=== PATIENT | female | born 1955 | race African-American/Black ===

== ENCOUNTER 2024-09-26 16:12 | Emergency (ER) | payer MEDICARE, MEDICAID ==
[~2024-09-26] VITALS: Ht 160 cm; Wt 78.7 kg
[~2024-09-26 16:12] MED LIST: ALBUAER3 IN; CARV-216 OR; CARV25TA55; CARV25TA55 OR; DOCU150L3 PO; ESCI1TAB37 PO; GABA-1250 OR; GABA-1250 PO; HYDR-3547 OR; HYDR25TA4 PO; INSU100I4 SC; INSUINJ32 SC; LEVEMIR; LIS20T PO; LISI40TA16 OR; LORA-1105; LORA-1121 PO; LORA10TA6 PO; METO5TAB2 PO; PRED-188 PO; RANI75TA65 OR; RANI75TA65 PO; ROSU10TA16 OR; ROSU10TA16 PO; TRAZ-228 OR; TRAZ-228 PO; TRIA75TA11 OR; ZOLP10TA6 OR; ZOLP10TA6 PO
--- NOTE | 2024-09-26 16:44 | ED.PDOC ---
Sarmad. trauma (HPI) HPI Comments 69 year old female presents to the ED with chief complaint of headache and neck pain. Patient reports that she has been experiencing a tightness-like headache with associated right sided neck pain for the past 5 days. Patient relays that she had fallen out of her 5 days ago, hitting her head and is concerned she con tinues to have a headache. Patient denies any LOC, dizziness, back pain, chest pain, numbness, or weakness. Chief Complaint: Headache Time Seen by MD: 16:40 Primary Care Provider: andres Reviewed notes: Nurses Notes, Medications, Allergies Allergies: Coded Allergies: NO KNOWN ALLERGIES (Unverified , 04/07/14) Home Meds Reported Medications Albuterol Sulfate (VENTOLIN MDI) 90 Mcg Ih, 90 MCG IN 04/07/14 Escitalopram Oxalate (ESCITALOPRAM OXALATE) 20 Mg Tab, 1 TAB PO QPM, #30 TAB 5 Refills 04/07/14 Trazodone Hcl (Trazodone Hcl) 100 Mg Tab, 1 TAB PO QPM, #30 TAB 1 Refill 04/07/14 Hydrocodone-Acetaminophen (VICODIN) 1 Tab Tab, 1 TAB OR Q6HP PRN for MODERATE PAIN, TAB 04/07/14 Zolpidem Tartrate (Zolpidem Tartrate) 10 Mg Tab, 1 TAB PO QPM, #30 TAB 2 Refills 04/07/14 Metoclopramide Hcl (Metoclopramide Hcl) 5 Mg Tab, 5 MG PO TID, TAB 04/07/14 Hydrochlorothiazide (Hydrochlorothiazide) 25 Mg Tab, 1 TAB PO DAILY, #30 TAB 5 Refills 04/07/14 Loratadine (Loratadine) 10 Mg Tab, 10 MG PO DAILY, TAB 04/07/14 Rosuvastatin Calcium (Crestor) 10 Mg Tab, 1 TAB PO DAILY, #30 TAB 5 Refills 04/07/14 Gabapentin (Gabapentin) 300 Mg Cap, 1 CAP PO BID, #90 CAP 5 Refills 04/07/14 Prednisone (PREDNISONE) 20 Mg Tb, 1 TAB PO, #5 TAB 04/07/14 Carvedilol (COREG) 12.5 Mg Tab, 25 MG OR BID, TAB 04/07/14 Lorazepam (ATIVAN TABLET) 0.5 Mg Tb, 1 TAB PO BID PRN for ANXIETY, #60 TAB 04/07/14 Lorazepam (ATIVAN TABLET) 0.5 Mg Tb, 1 TAB PO TID, #90 TAB 04/07/14 Lisinopril (ZESTRIL TABLET) 20 Mg Tb, 40 MG PO 04/07/14 Docusate Sodium (Doc-Q-Lace) 150 Mg/15 Ml Liq, 100 MG PO, LIQ 04/07/14 Ranitidine Hcl (Ranitidine 75) 75 Mg Tab, 150 MG PO, TAB 04/07/14 Insulin Detemir (Levemir Flexpen) Flexpen Inj, 39 SC, INJ 04/07/14 Insulin Lispro (Human) (Humalog Kwikpen) 100 Mg/Ml Inj, 100 MG SC, INJ 04/07/14 Insulin Detemir (Levemir) Inj 03/23/11 Lorazepam (Lorazepam) 2 Mg Tab 03/23/11 Carvedilol (Carvedilol) 25 Mg Tab 03/23/11 Ranitidine Hcl (Ranitidine 75) 75 Mg Tab, 75 MG OR QAM, #2 12/18/10 Zolpidem Tartrate (Zolpidem Tartrate) 10 Mg Tab, 10 MG OR HS 12/18/10 Insulin Detemir (Levemir Flexpen) Flexpen Inj, 35 SC HS 12/18/10 Hydrochlorothiazide W/Triamter (Hctz/Triamterene) 1 Tab Tab, 1 TAB OR QAM 12/18/10 Lisinopril (Lisinopril) 40 Mg Tab, 40 MG OR BID 12/17/10 Trazodone Hcl (Trazodone Hcl) 100 Mg Tab, 100 MG OR HS 12/17/10 Rosuvastatin Calcium (Crestor) 10 Mg Tab, 10 MG OR HS 12/17/10 Carvedilol (Carvedilol) 25 Mg Tab, 25 MG OR BID 12/17/10 Gabapentin (Gabapentin) 300 Mg Cap, 300 MG OR BID 12/17/10 Information Source: Patient Mode of Arrival: Ambulatory Severity: Moderate Timing: Days Duration: Since onset Prehospital treatment: None Location: Head, Neck Location of neck pain: (R) Lateral Mechanism: Fall Past Medical History PAST MEDICAL HISTORY: Cancer, DM, HTN, UTI'S Surgical History: Denies all surgeries ELECTRICAL SUBCONTRACTOR History: No Pertinent ELECTRICAL SUBCONTRACTOR History Family History Family History: No family hx of DM, No family hx of HTN Social History Smoker: Non-Smoker Alcohol: Occasionally Drugs: Denies Drug Use Lives In: Home Constitutional: denies: chills, diaphoresis, fatigue, fever, malaise, sweats, weakness, others EENTM: denies: blurred vision, double vision, ear bleeding, ear discharge, ear drainage, ear pain, ear ringing, eye pain, eye redness, hearing loss, mouth p ain, mouth swelling, nasal discharge, nose bleeding, nose congestion, nose pain, photophobia, tearing, throat pain, throat swelling, voice changes, others Respiratory: denies: cough, hemoptysis, orthopnea, SOB at rest, shortness of br eath, SOB with excertion, stridor, wheezing, others Cardiovascular: denies: chest pain, dizzy spells, diaphoresis, Dyspnea on exertion, edema, irregular heart beat, left arm pain, lightheadedness, palpitations, PND, syncope, others Gastrointestinal: denies: abdomen distended, abdominal pain, blood streaked bowels, constipated, diarrhea, dysphagia, difficulty swallowing, hematemesis, melena, nausea, poor appetite, poor fluid intake, rectal bleeding, rectal pain, vomiting, others Genitourinary: denies: abnormal vagina bleeding, burning, dyspareunia, dysuria, flank pain, frequency, hematuria, incontinence, pain, , vagina discharge, urgency, others Neurological: reports: headache; denies: dizziness, fainting, left sided numbness, left sided weakness, numbness, paresthesia, pre-existing deficit, right sided numbness, right sided weakness, seizure, speech problems, tingling, tremors, weakness, others Musculoskeletal: reports: neck pain; denies: back pain, gout, joint pain, joint swelling, muscle pain, muscle stiffness, others Integumetry: denies: bruises, change in color, change in hair/nails, dryness, laceration, lesions, lumps, rash, wounds, others Allergic/Immunocompromised: denies: Difficulty Healing, Frequent Infections, Hives, Itching, others Hematologic/Lymphatic: denies: anemia, blood clots, easy bleeding, easy bruising, swollen glands, others Endocrine: denies: excessive hunger, excessive sweating, excessive thirst, excessive urination, flushing, intolerance to cold, intolerance to heat, unexplained weight gain, unexplained weight loss, others Psychiatric: denies: anxiety, bipolar disorder, depression, hopeless, panic d isorder, schizophrenia, sleepless, suicidal, others All Other Systems: Reviewed and Negative Physical Exam General Appearance: No Apparent Distress, Normal HEENT: Normal ENT Inspection, PERRL/EOMI, Other Neck: Full Range of Motion (Full ROM to the C-Spine), Non-Tender, Normal, Normal Inspection Respiratory: Chest Non-Tender, Lungs Clear, No Accessory Muscle Use, No Respiratory Distress, Normal Breath Sounds Cardiovascular: No Edema, No JVD, No Murmur, No Gallop, Normal Peripheral Pulses, Regular Rate/Rhythm Breast Exam: Deferred Gastrointestinal: No Organomegaly, Non Tender, No Pulsatile Mass, Normal Bowel Sounds, Soft Genitalia: Deferred Pelvic: Deferred Rectal: Deferred Extremities: No calf tenderness, Normal capillary refill, Normal inspection, Normal range of motion, Non-tender, No pedal edema Musculoskeletal : Location: Right Extremity Location: Other (Trapezius muscle) Apperance: Normal, Tenderness (Tenderness noted to right trapezius muscle) Neurologic: Alert, medical aide II-XII nml as Tested, No Motor Deficits, Normal Affect, Normal Mood, No Sensory Deficits Cerebellar Function: Normal Reflexes: Normal Skin: Dry, Normal Color, Warm Lymphatic: No Adenopathy Was a procedure done? Was a procedure done?: No Differential Diagnosis Multiple Trauma: Closed Head Injury, Fractures, Encephalopathy X-Ray, Labs, Meds, VS Vital Signs Date Time Temp Pulse Resp B/P (MAP) Pulse Ox O2 Delivery O2 Flow Rate FiO2 09/26/24 16:28 98.2 95 16 175/91 (119) 97 X-Ray, Labs, Meds, VS Comment Imaging: X-rays and CT scans were reviewed and interpreted by this provider, imaging shows no fractures and no pathological disease. Pending radiology review. Laboratory: Labs reviewed and interpreted by this provider. No significant abnormalities noted. Patient has prior medical visits reviewed. Med reconciliation performed Vital signs reviewed Time of 1ST Reevaluation: 17:40 Reevaluation 1ST: Unchanged Patient Education/Counseling: Diagnosis, Treatment, Need For Follow Up (Patient advised to follow-up in the emergency room in the next 24 to 48 hours if symptoms do not improve. Advised follow-up with PCP in the next 3 to 5 days. Patient verbalized understanding. ) Family Education/Counseling: No Family Present Departure 1 Departure Time of Disposition: 18:00 Impression: Primary Impression: Closed head injury Qualified Codes: S09.90XA - Unspecified injury of head, initial encounter Additional Impression: Tension headache Disposition: HOME / SELF CARE / HOMELESS Condition: Fair e-Prescriptions Cyclobenzaprine Hcl (Cyclobenzaprine Hcl) 5 Mg Tab 1 TAB PO QPM, #30 TAB Prov: KIRK CRISTINA 09/26/24 Discharged With: Self Critical Care Note Critical Care Time?: No Stability Stability form required: No Heart Score Heart Score: Heart Score Response (Comments) Value History N/A 0 EKG N/A 0 Age N/A 0 Risk Factors N/A 0 Troponin N/A 0 Total 0 I personally scribed for KIRK CRISTINA ([email or web address]) on 09/26/24 at 16:43. Electronically submitted by Chicho Dye ([email or web address]). KIRK CRISTINA Sep 26, 2024 16:43
--- NOTE | 2024-09-26 17:05 | DVH ---
EXAM: CT HEAD WITHOUT CONTRAST INDICATION: fall TECHNIQUE: CT of the head without intravenous contrast. Radiation Dose Information: CT Dose: CTDI volume is 53.79 mGy. Dose-length product is 862.4 mGy*cm The dose indicators for CT are the volume Computed Tomography (CT) Dose Index (CTDIvol) and the Dose Length Product (DLP), and are measured in units of mGy and mGy-cm, respectively. These indicators are not patient dose, but values generated from the CT scanner acquisition factors. The report includes radiation exposure data for exposures received during this examination. COMPARISON: None FINDINGS: There is no evidence of acute intracranial hemorrhage, extra-axial collection, mass effect, midline s hift, herniation or hydrocephalus. The ventricles, sulci and cisterns are age appropriate. The de guzman-white differentiation is intact. Patchy periventricular and subcortical white matter hypoattenuation is nonspecific but may be related to small vessel ischemic disease. Mucosal thickening of the sphenoid sinus on the left and mastoid air cells are clear. The surrounding soft tissues and osseous structures are unremarkable. IMPRESSION: 1. No acute intracranial hemorrhage 2. No CT findings of territorial ischemia. 3. No CT findings of displaced skull fracture.
[2024-09-26] MEDS ORDERED: CYCL-837 PO (18:03)
[2024-09-26 22:17] VITALS: BP 167/84; PULSE 72; RESP 18; TEMP 98.3; O2SAT 97
== END 2024-09-26 22:19 | disposition home or self-care (01) ==
LOC: ER 16:15
DX: S09.90XA Unspecified injury of head, initial encounter (principal); G44.209 Tension-type headache, unspecified, not intractable; I10 Essential (primary) hypertension; E11.9 Type 2 diabetes mellitus without complications; Z79.899 Other long term (current) drug therapy; Z79.4 Long term (current) use of insulin; W18.39XA Other fall on same level, initial encounter; Y93.89 Activity, other specified; Y92.89 Other specified places as the place of occurrence of the external cause; Y99.8 Other external cause status
CPT/HCPCS: 70450

== ENCOUNTER 2025-04-12 16:18 | Inpatient (IN) | payer OTHER, MEDICAID ==
[~2025-04-12] VITALS: Ht 160 cm; Wt 76.5 kg
[~2025-04-12 16:18] MED LIST changes: +CYCL-837 PO
[2025-04-12 17:25] LABS: Hematocrit 38.7 % (36.0-46.0); Hemoglobin 13.0 g/dL (12.2-16.2); Mean Corpuscular Hemoglobin 28.5 pg (28.0-32.0); Mean Corpuscular Volume 85.1 fL (80.0-100.0); Nucleated Red Blood Cells % 0.0 %
[2025-04-12 17:38] LABS: Sodium 144 mmol/L (136-145)
[2025-04-12 17:39] LABS: Anion Gap 5 (5-15); Calcium 9.6 mg/dL (8.7-10.4); Carbon Dioxide 24 mmol/L (20-31)
[2025-04-12 17:44] LABS: BUN/Creatinine Ratio 9.4 (10.0-20.0); Blood Urea Nitrogen 17 mg/dL (9-23)
--- NOTE | 2025-04-12 17:51 | ED.PDOC ---
History of Present Illness HPI Comments This is a 69 year old female presenting to the ED with chief complaint abnormal labs. Patient reports that she had recent lab work performed and received a call from her PCP an hour ago. Patient relays that she was told her Potassium was at 6.8 and advised her to be evaluated by the ED immediately. Patient states that she has been having some recent diarrhea and fatigue. Patient denies any N/V, chest pain, SOB, or abdominal pain. Chief Complaint: Abnormal LAB's Time Seen by MD: 17:00 Primary Care Provider: andres Reviewed Notes: Nurses Notes, Medications, Allergies Allergies: Coded Allergies: NO KNOWN ALLERGIES (Unverified , 04/07/14) Home Meds Active Scripts Cyclobenzaprine Hcl (Cyclobenzaprine Hcl) 5 Mg Tab, 1 TAB PO QPM, #30 TAB Prov:KIRK CRISTINA 09/26/24 Reported Medications Albuterol Sulfate (VENTOLIN MDI) 90 Mcg Ih, 90 MCG IN 04/07/14 Escitalopram Oxalate (ESCITALOPRAM OXALATE) 20 Mg Tab, 1 TAB PO QPM, #30 TAB 5 Refills 04/07/14 Trazodone Hcl (Trazodone Hcl) 100 Mg Tab, 1 TAB PO QPM, #30 TAB 1 Refill 04/07/14 Hydrocodone-Acetaminophen (VICODIN) 1 Tab Tab, 1 TAB OR Q6HP PRN for MODERATE PAIN, TAB 04/07/14 Zolpidem Tartrate (Zolpidem Tartrate) 10 Mg Tab, 1 TAB PO QPM, #30 TAB 2 Refills 04/07/14 Metoclopramide Hcl (Metoclopramide Hcl) 5 Mg Tab, 5 MG PO TID, TAB 04/07/14 Hydrochlorothiazide (Hydrochlorothiazide) 25 Mg Tab, 1 TAB PO DAILY, #30 TAB 5 Refills 04/07/14 Loratadine (Loratadine) 10 Mg Tab, 10 MG PO DAILY, TAB 04/07/14 Rosuvastatin Calcium (Crestor) 10 Mg Tab, 1 TAB PO DAILY, #30 TAB 5 Refills 04/07/14 Gabapentin (Gabapentin) 300 Mg Cap, 1 CAP PO BID, #90 CAP 5 Refills 04/07/14 Prednisone (PREDNISONE) 20 Mg Tb, 1 TAB PO, #5 TAB 04/07/14 Carvedilol (COREG) 12.5 Mg Tab, 25 MG OR BID, TAB 04/07/14 Lorazepam (ATIVAN TABLET) 0.5 Mg Tb, 1 TAB PO BID PRN for ANXIETY, #60 TAB 04/07/14 Lorazepam (ATIVAN TABLET) 0.5 Mg Tb, 1 TAB PO TID, #90 TAB 04/07/14 Lisinopril (ZESTRIL TABLET) 20 Mg Tb, 40 MG PO 04/07/14 Docusate Sodium (Doc-Q-Lace) 150 Mg/15 Ml Liq, 100 MG PO, LIQ 04/07/14 Ranitidine Hcl (Ranitidine 75) 75 Mg Tab, 150 MG PO, TAB 04/07/14 Insulin Detemir (Levemir Flexpen) Flexpen Inj, 39 SC, INJ 04/07/14 Insulin Lispro (Human) (Humalog Kwikpen) 100 Mg/Ml Inj, 100 MG SC, INJ 04/07/14 Insulin Detemir (Levemir) Inj 03/23/11 Lorazepam (Lorazepam) 2 Mg Tab 03/23/11 Carvedilol (Carvedilol) 25 Mg Tab 03/23/11 Ranitidine Hcl (Ranitidine 75) 75 Mg Tab, 75 MG OR QAM, #2 12/18/10 Zolpidem Tartrate (Zolpidem Tartrate) 10 Mg Tab, 10 MG OR HS 12/18/10 Insulin Detemir (Levemir Flexpen) Flexpen Inj, 35 SC HS 12/18/10 Hydrochlorothiazide W/Triamter (Hctz/Triamterene) 1 Tab Tab, 1 TAB OR QAM 12/18/10 Lisinopril (Lisinopril) 40 Mg Tab, 40 MG OR BID 12/17/10 Trazodone Hcl (Trazodone Hcl) 100 Mg Tab, 100 MG OR HS 12/17/10 Rosuvastatin Calcium (Crestor) 10 Mg Tab, 10 MG OR HS 12/17/10 Carvedilol (Carvedilol) 25 Mg Tab, 25 MG OR BID 12/17/10 Gabapentin (Gabapentin) 300 Mg Cap, 300 MG OR BID 12/17/10 Information Source: Patient Mode of Arrival: Ambulatory Severity: Moderate Timing: Hours Duration: Since onset Prehospital treatment: None Past Medical History PAST MEDICAL HISTORY: Cancer, DM, HTN, UTI'S Surgical History: Denies all surgeries FITTER HELPER History: No Pertinent FITTER HELPER History Family History Family History: No family hx of DM, No family hx of HTN Social History Smoker: Non-Smoker Alcohol: Occasionally Drugs: Denies Drug Use Lives In: Home Constitutional: reports: fatigue; denies: chills, diaphoresis, fever, malaise, sweats, weakness, others EENTM: denies: blurred vision, double vision, ear bleeding, ear discharge, ear drainage, ear pain, ear ringing, eye pain, eye redness, hearing loss, mouth pain, mouth swelling, nasal discharge, nose bleeding, nose congestion, nose pain, photophobia, tearing, throat pain, throat swelling, voice changes, others Respiratory: denies: cough, hemoptysis, orthopnea, SOB at rest, shortness of breath, SOB with excertion, stridor, wheezing, others Cardiovascular: denies: chest pain, dizzy spells, diaphoresis, Dyspnea on exertion, edema, irregular heart beat, left arm pain, lightheadedness, palpitations, PND, syncope, others Gastrointestinal: reports: diarrhea; denies: abdomen distended, abdominal pain, blood streaked bowels, constipated, dysphagia, difficulty swallowing, hematemesis, melena, nausea, poor appetite, poor fluid intake, rectal bleeding, rectal pain, vomiting, others Genitourinary: denies: abnormal vagina bleeding, burning, dyspareunia, dysuria, flank pain, frequency, hematuria, incontinence, pain, , vagina discharge, urgency, others Neurological: denies: dizziness, fainting, headache, left sided numbness, left sided weakness, numbness, paresthesia, pre-existing deficit, right sided numbness, right sided weakness, seizure, speech problems, tingling, tremors, weakness, others Musculoskeletal: denies: back pain, gout, joint pain, joint swelling, muscle pain, muscle stiffness, neck pain, others Integumetry: denies: bruises, change in color, change in hair/nails, dryness, laceration, lesions, lumps, rash, wounds, others Allergic/Immunocompromised: denies: Difficulty Healing, Frequent Infections, Hives, Itching, others Hematologic/Lymphatic: denies: anemia, blood clots, easy bleeding, easy bruising, swollen glands, others Endocrine: denies: excessive hunger, excessive sweating, excessive thirst, excessive urination, flushing, intolerance to cold, intolerance to heat, unexplained weight gain, unexplained weight loss, others Psychiatric: denies: anxiety, bipolar disorder, depression, hopeless, panic disorder, schizophrenia, sleepless, suicidal, others All Other Systems: Reviewed and Negative Physical Exam General Appearance: No Apparent Distress, Normal HEENT: Normal ENT Inspection, Pharynx Normal, TMs Normal Neck: Full Range of Motion, Non-Tender, Normal, Normal Inspection Respiratory: Chest Non-Tender, Lungs Clear, No Accessory Muscle Use, No Resp iratory Distress, Normal Breath Sounds Cardiovascular: No Edema, No JVD, No Murmur, No Gallop, Normal Peripheral Pulses, Regular Rate/Rhythm Breast Exam: Deferred Gastrointestinal: No Organomegaly, Non Tender, No Pulsatile Mass, Normal Bowel Sounds, Soft Genitalia: Deferred Pelvic: Deferred Rectal: Deferred Extremities: No calf tenderness, Normal capillary refill, Normal inspection, Normal range of motion, Non-tender, No pedal edema Musculoskeletal : Apperance: Normal Neurologic: Alert, rug cutter helper II-XII nml as Tested, No Motor Deficits, Normal Affect, Normal Mood, No Sensory Deficits Cerebellar Function: Normal Reflexes: Normal Skin: Dry, Normal Color, Warm Lymphatic: No Adenopathy Was a procedure done? Was a procedure done?: No Differential Dx Considerations may include: Hyperkalemia X-Ray, Labs, Meds, VS Vital Signs Date Time Temp Pulse Resp B/P (MAP) Pulse Ox O2 Delivery O2 Flow Rate FiO2 04/12/25 16:23 98.1 79 18 161/76 98 98.1 Lab Test 04/12/25 18:22 04/12/25 17:22 04/12/25 17:13 Range/Units Troponin I High Sensitivity 94 *H 91 *H </=34 ng/L Urine Color Yellow Yellow Urine Clarity Turbid H Clear Urine pH 6.0 5.0-9.0 Urine Specific [place] 1.017 1.001-1.035 Urine Protein 2+ H Negative Urine Ketones Negative Negative Urine Blood Negative Negative /uL Urine Nitrite Negative Negative Urine Bilirubin Negative Negative Urine Urobilinogen Normal Negative mg/dL Urine Leukocyte Esterase Negative Negative /uL Urine RBC 1 0 - 4 /hpf Urine Microscopic WBC 2 0-5 /HPF Urine Squamous Epithelial Cells Few <5 /hpf Urine Bacteria Mod H None Seen /hpf Urine Hyaline Casts Few 0 - 2 /lpf Urine Mucus Few None Seen Urine Glucose Normal Normal mg/dL White Blood Count 5.6 4.4-10.8 10^3/uL Red Blood Count 4.55 4.0-5.20 10^6/uL Hemoglobin 13.0 12.2-16.2 g/dL Hematocrit 38.7 36.0-46.0 % Mean Corpuscular Volume 85.1 80.0-100.0 fL Mean Corpuscular Hemoglobin 28.5 28.0-32.0 pg Mean Corpuscular Hemoglobin Concent 33.5 32.0-36.0 g/dL Red Cell Distribution Width 14.0 11.8-14.3 % Platelet Count 188 140-450 10^3/uL Mean Platelet Volume 8.7 6.9-10.8 fL Neutrophils (%) (Auto) 65.0 37.0-80.0 % Lymphocytes (%) (Auto) 22.6 10.0-50.0 % Monocytes (%) (Auto) 8.5 0.0-12.0 % Eosinophils (%) (Auto) 2.6 0.0-7.0 % Basophils (%) (Auto) 1.3 0.0-2.0 % Neutrophils # (Auto) 3.6 1.6-8.6 10 ^3/uL Lymphocytes # (Auto) 1.3 0.4-5.4 10 ^3/uL Monocytes # (Auto) 0.5 0-1.3 10 ^3/uL Eosinophils # (Auto) 0.1 0-0.8 10 ^3/uL Basophils # (Auto) 0.1 0-0.2 10 ^3/uL Nucleated Red Blood Cells 0.0 % Sodium Level 144 136-145 mmol/L Potassium Level 5.1 3.5-5.1 mmol/L Chloride Level 115 H 98-107 mmol/L Carbon Dioxide Level 24 20-31 mmol/L Anion Gap 5 5-15 Blood Urea Nitrogen 17 9-23 mg/dL Creatinine 1.81 H 0.550-1.02 mg/dL Glomerular Filtration Rate Calc 30 >90 mL/min BUN/Creatinine Ratio 9.4 L 10.0-20.0 Serum Glucose 134 H 74-106 mg/dL Calcium Level 9.6 8.7-10.4 mg/dL Time of 1ST Reevaluation: 18:00 Reevaluation 1ST: Unchanged Patient Education/Counseling: Diagnosis, Treatment Family Education/Counseling: No Family Present SEPSIS Sepsis Screen Date sepsis recognized/suspect: Apr 12, 2025 Time Sepsis recognized/suspect: 1625 Recent Procedure: No On Antibiotic Therapy: No Respiratory Rate >20: No Heart Rate >90: No Temp<36 C (96.8 F) or >38.3 C: No SBP <90 or MAP <65 mmHG: No New Acute Mental Status Change: No Is the patient on CPAP, BIPAP,: No Physician Orders Electrocardigram (04/12/25 16:51) Troponin-I Hs (04/12/25 19:51) Electrocardigram (04/12/25 17:51) Electrocardigram (04/12/25 19:51) Vital Signs Date Time Temp Pulse Resp B/P (MAP) Pulse Ox O2 Delivery O2 Flow Rate FiO2 04/12/25 16:23 98.1 79 18 161/76 98 98.1 Laboratory Tests Test 04/12/25 17:13 White Blood Count 5.6 10^3/uL (4.4-10.8) Departure 1 Departure Time of Disposition: 19:06 (Patient's potassium level was only mildly elevated however patient has prominent is elevated. EKGs nonischemic we will admit patient for further workup and expert consultation) Impression: Primary Impression: Generalized weakness Additional Impression: Elevated troponin Disposition: ADMITTED INPATIENT Admit to: Med Surg Condition: Guarded Critical Care Note Critical Care Time?: No Stability Stability form required: No Heart Score Heart Score: Heart Score Response (Comments) Value History N/A 0 EKG N/A 0 Age N/A 0 Risk Factors N/A 0 Troponin N/A 0 Total 0 I personally scribed for FANNIE QUINTANA MD ([email or web address]) on 04/12/25 at 17:51. Electronically submitted by Chicho Dye ([email or web address]). FANNIE QUINTANA MD Apr 12, 2025 17:51
[2025-04-12 18:37] LABS: Chloride 115 mmol/L (98-107); Glucose 134 mg/dL (74-106); Potassium 5.1 mmol/L (3.5-5.1)
[2025-04-12 18:40] LABS: Urine Protein, UAD 2+ (Negative)
--- NOTE | 2025-04-12 23:26 | DVHHP2 ---
History of Present Illness Reason for Visit: Elevated troponin History of Present Illness The patient is a 69-year-old female with past medical history of cancer site unknown, diabetes mellitus, UTIs, and hypertension who presented to [facility] ED for evaluation of abnormal labs. Patient reports that she had recent lab work performed and received a call from her PCP regarding her Potassium result was at 6.8, instructing her to be evaluated by the ED immediately. Patient states that she has been having some recent diarrhea and fatigue. Patient was seen and evaluated in the ED, laboratory data shows WBC 5.6, platelets 188, sodium 144, potassium 5.1, BUN 17, creatinine 1.81, glucose 134, calcium 9.6, troponin 94, blood pressure 161/76, pulse 79, temperature 98.1 F, O2 saturation 98% on room air. Please see medication orders section in the computer. On my assessment, patient denied chest pain, no headache, no dizziness, no diaphoresis, no shortness of breath, no diarrhea at this moment, no nausea, no vomiting, no fever, no chills. Patient was admitted for further evaluation and medical management. Past Medical History Cancer, DM, HTN, UTI'S Past Surgical History Denies all surgeries Family History Reviewed, noncontributory to the management of this case. Past Social History The patient lives at home, denies smoking, alcohol or illicit drugs abuse. Review of Systems Constitutional: Yes: Other (Fatigue); No: Fever, Chills, Sweats, Weakness, Malaise Eyes: No: Pain, Vision change, Conjunctivae inflammation, Eyelid inflammation, Other, Redness ENT: No: Ear pain, Ear discharge, Nose pain, Nose discharge, Nose congestion, Mouth pain, Mouth swelling, Throat pain, Throat swelling, Other Respiratory: No: Cough, Dry, Shortness of breath, SOB with excertion, Wheezing, Hemoptysis, Pleuritic Pain, Sputum, Wheezing, Other Cardiovascular: No: Chest Pain, Palpitations, Orthopnea, Paroxysmal Noc. Dyspnea, Edema, Lt Headedness, Other Gastrointestinal: Diarrhea; No: Nausea, Vomiting, Abdominal Pain, Constipation, Melena, Hematochezia, Other Genitourinary: No Dysuria, No Frequency, No Incontinence, No Hematuria, No Retention, No Other Musculoskeletal: No: other, neck pain, shoulder pain, arm pain, back pain, hand pain, leg pain, foot pain Skin: No: Rash, Lesions, Jaundice, Bruising, Other Neurological: No: Weakness, Numbness, Incoordination, Change in speech, Confusion, Seizures, Other Allergies: Coded Allergies: NO KNOWN ALLERGIES (Unverified , 04/07/14) Exam Vital Signs Vital Signs Date Time Temp Pulse Resp B/P (MAP) Pulse Ox O2 Delivery O2 Flow Rate FiO2 04/12/25 16:23 98.1 79 18 161/76 98 98.1 General Appearance: Alert, Oriented X3, Cooperative, No acute distress HEENT: Atraumatic, PERRLA, EOMI, Mucous membr. moist/pink Respiratory: Normal air movement Cardiovascular: Regular rate, Normal S1, Normal S2, No murmurs Abdominal: Normal bowel sounds, Soft, No tenderness, No hepatospenomegaly, No masses Extremities: No clubbing, No cyanosis, No edema, Normal pulses, No tenderness/swelling Skin: No rashes, No significant lesion Neuro: Normal speech, Normal tone, Sensation intact, Cranial nerves 3-12 NL, Reflexes 2+, Other (Generalized weakness) Psych/Mental Status: Mental status NL, Mood NL Labs/Xrays Labs Test 04/12/25 18:22 04/12/25 17:22 04/12/25 17:13 Range/Units Troponin I High Sensitivity 94 *H </=34 ng/L Urine Color Yellow Yellow Urine Clarity Turbid H Clear Urine pH 6.0 5.0-9.0 Urine Specific [place] 1.017 1.001-1.035 Urine Protein 2+ H Negative Urine Ketones Negative Negative Urine Blood Negative Negative /uL Urine Nitrite Negative Negative Urine Bilirubin Negative Negative Urine Urobilinogen Normal Negative mg/dL Urine Leukocyte Esterase Negative Negative /uL Urine RBC 1 0 - 4 /hpf Urine Microscopic WBC 2 0-5 /HPF Urine Squamous Epithelial Cells Few <5 /hpf Urine Bacteria Mod H None Seen /hpf Urine Hyaline Casts Few 0 - 2 /lpf Urine Mucus Few None Seen Urine Glucose Normal Normal mg/dL White Blood Count 5.6 4.4-10.8 10^3/uL Red Blood Count 4.55 4.0-5.20 10^6/uL Hemoglobin 13.0 12.2-16.2 g/dL Hematocrit 38.7 36.0-46.0 % Mean Corpuscular Volume 85.1 80.0-100.0 fL Mean Corpuscular Hemoglobin 28.5 28.0-32.0 pg Mean Corpuscular Hemoglobin Concent 33.5 32.0-36.0 g/dL Red Cell Distribution Width 14.0 11.8-14.3 % Platelet Count 188 140-450 10^3/uL Mean Platelet Volume 8.7 6.9-10.8 fL Neutrophils (%) (Auto) 65.0 37.0-80.0 % Lymphocytes (%) (Auto) 22.6 10.0-50.0 % Monocytes (%) (Auto) 8.5 0.0-12.0 % Eosinophils (%) (Auto) 2.6 0.0-7.0 % Basophils (%) (Auto) 1.3 0.0-2.0 % Neutrophils # (Auto) 3.6 1.6-8.6 10 ^3/uL Lymphocytes # (Auto) 1.3 0.4-5.4 10 ^3/uL Monocytes # (Auto) 0.5 0-1.3 10 ^3/uL Eosinophils # (Auto) 0.1 0-0.8 10 ^3/uL Basophils # (Auto) 0.1 0-0.2 10 ^3/uL Nucleated Red Blood Cells 0.0 % Sodium Level 144 136-145 mmol/L Potassium Level 5.1 3.5-5.1 mmol/L Chloride Level 115 H 98-107 mmol/L Carbon Dioxide Level 24 20-31 mmol/L Anion Gap 5 5-15 Blood Urea Nitrogen 17 9-23 mg/dL Creatinine 1.81 H 0.550-1.02 mg/dL Glomerular Filtration Rate Calc 30 >90 mL/min BUN/Creatinine Ratio 9.4 L 10.0-20.0 Serum Glucose 134 H 74-106 mg/dL Calcium Level 9.6 8.7-10.4 mg/dL SEPSIS Sepsis Screen Date sepsis recognized/suspect: Apr 12, 2025 Time Sepsis recognized/suspect: 1625 Recent Procedure: No On Antibiotic Therapy: No Respiratory Rate >20: No Heart Rate >90: No Temp<36 C (96.8 F) or >38.3 C: No SBP <90 or MAP <65 mmHG: No New Acute Mental Status Change: No Is the patient on CPAP, BIPAP,: No Physician Orders Electrocardigram (04/12/25 16:51) Troponin-I Hs (04/12/25 19:51) Electrocardigram (04/12/25 17:51) Electrocardigram (04/12/25 19:51) Consistent Carb(Ccho)Diabetes (04/13/25 Breakfast) * Cardiology Consult (04/12/25 23:18) *Dr. Rylie Colón -Da [place] (04/12/25 23:18) Aspirin Tablet (04/13/25 10:00) Aspirin Tablet (04/12/25 23:30) Atorvastatin (Lipitor) (04/13/25 22:00) Lorazepam 2mg/Ml Inj (Ativan Inj) (04/12/25 23:30) Carvedilol Tablet (Coreg Tablet) (04/13/25 10:00) Hydralazine Injection (Apresoline Inject (04/12/25 23:30) Amlodipine Tablet (Norvasc Tablet) (04/13/25 10:00) Glucose Blood (Accu-Chek Comfort Curve T (04/13/25 07:00) Bedtime Insulin Scale (04/13/25 22:00) Moderate Insulin Ss (04/13/25 07:00) Dextrose 50% Syringe (04/12/25 23:30) Admit (04/12/25 23:18) Allergies (04/12/25 23:18) Code Status (04/12/25 23:18) Sodium Chloride Lock (Saline Lock Ns) (04/13/25 06:00) Oxygen Per Hour (04/12/25 23:18) Hydrocodone-Acet 5/325mg Tab ([place] 32 (04/12/25 23:30) Ondansetron Hcl (Zofran) (04/12/25 23:30) Docusate Sodium Capsule (Colace Capsule) (04/12/25 23:30) Complete Blood Count (04/13/25 04:00) Comprehensive Metabolic Panel (04/13/25 04:00) Condition: Serious (04/12/25 23:18) Acetaminophen Tablet (Tylenol Tablet) (04/12/25 23:30) Bedrest With Bathroom Privileg (04/12/25 23:18) Sequential Compression Device (04/12/25 ) Nitroglycerin Sublingual (Ntrostat Subli (04/12/25 23:30) Morphine Sulfate Injection (04/12/25 23:30) Stat Ekg For Chest Pain (04/12/25 23:18) Notify Md Of Changes From Base (04/12/25 23:18) Travel Coordinator For 24 Hours (04/12/25 23:18) Emergency Dysrhythmia Protocol (04/12/25 23:18) Rhythm Strips Once Every Shift (04/12/25 23:18) Oxygen By Nasal Cannula (04/12/25 23:18) Vital Signs Date Time Temp Pulse Resp B/P (MAP) Pulse Ox O2 Delivery O2 Flow Rate FiO2 04/12/25 16:23 98.1 79 18 161/76 98 98.1 Laboratory Tests Test 04/12/25 17:13 White Blood Count 5.6 10^3/uL (4.4-10.8) Assessment/Plan Assessment/Plan Generalized weakness Hyperkalemia Acute renal injury Elevated troponin Diabetes mellitus with hyperglycemia Plan 1. Admit to telemetry unit 2. Breathing treatment 3. Pain control management 4. Management of fluids and electrolytes 5. Consultation for hospitalist 6. Diagnostic tests chest x-ray 7. DVT prophylaxis-on aspirin 8. Repeat labs CBC, CMP in a.m. 9. Continue with current medical management 10. Treatment plan discussed with patient and RN. Patient verbalized understanding. Plan discussed with: Patient, Other (RN) My Orders Orders - JT MCKINNEY DNP Procedure Category Date Status Time Consistent DIET 04/13/25 Transmitted Carb(Ccho)Diabetes Breakfast * Cardiology Consult CONS 04/12/25 Transmitted 23:18 *Dr. Rylie Colón -Da CONS 04/12/25 Transmitted [place] 23:18 Aspirin Tablet PHA 04/13/25 Transmitted 10:00 Aspirin Tablet PHA 04/12/25 Transmitted 23:30 Atorvastatin (Lipitor) PHA 04/13/25 Transmitted 22:00 Lorazepam 2mg/Ml Inj PHA 04/12/25 Verified (Ativan Inj) 23:30 Carvedilol Tablet PHA 04/13/25 Verified (Coreg Tablet) 10:00 Hydralazine Injection PHA 04/12/25 Verified (Apresoline Inject 23:30 Amlodipine Tablet PHA 04/13/25 Verified (Norvasc Tablet) 10:00 Glucose Blood PHA 04/13/25 Verified (Accu-Chek Comfort 07:00 Bedtime Insulin Scale PHA 04/13/25 Verified 22:00 Moderate Insulin Ss [facility] 04/13/25 Verified 07:00 Dextrose 50% Syringe [facility] 04/12/25 Verified 23:30 Admit ADMIT 04/12/25 Verified 23:[address] [facility] 04/12/25 Verified 23:18 Code Status CODE 04/12/25 Verified 23:18 Sodium Chloride Lock [facility] 04/13/25 Verified (Saline Lock Ns) 06:00 Oxygen Per Hour RT 04/12/25 Verified 23:18 Hydrocodone-Acet [facility] 04/12/25 Verified 5/325mg Tab ([place] 23:30 Ondansetron Hcl [facility] 04/12/25 Verified (Zofran) 23:30 Docusate Sodium [facility] 04/12/25 Verified Capsule (Colace 23:30 Complete Blood Count LAB 04/13/25 Verified 04:00 Comprehensive LAB 04/13/25 Verified Metabolic Panel 04:00 Condition: Serious [facility] 04/12/25 Verified 23:18 Acetaminophen Tablet [facility] 04/12/25 Verified (Tylenol Tablet) 23:30 Bedrest With Bathroom [facility] 04/12/25 Verified Privileg 23:[address] [facility] 04/12/25 Verified Compression Device Nitroglycerin [facility] 04/12/25 Verified Sublingual (Ntrostat 23:30 Morphine Sulfate [facility] 04/12/25 Verified Injection 23:30 Stat Ekg For Chest [facility] 04/12/25 Verified Pain 23:18 Notify Md Of Changes [facility] 04/12/25 Verified From Base 23:18 Travel Coordinator For [facility] 04/12/25 Verified 24 Hours 23:18 Emergency Dysrhythmia [facility] 04/12/25 Verified Protocol 23:18 Rhythm Strips Once [facility] 04/12/25 Verified Every Shift 23:18 Oxygen By Nasal 04/12/25 Verified Cannula 23:18 Problem List: (1) Generalized weakness (2) Hyperkalemia (3) Acute renal injury (4) Elevated troponin (5) Diabetes mellitus with hyperglycemia Date of Service: Apr 12, 2025 Billing Provider: JT MCKINNEY DNP Common Visit Codes: [id number] INP/OBS CARE (HIGH) JT MCKINNEY DNP Apr 12, 2025 23:25
[2025-04-12] MEDS ORDERED: MORPHINE SULFATE INJ 2 MG/ml SYRG IV PRN (23:30)
[2025-04-12] MEDS ORDERED: DEXTROSE (50%) 50ML SYRG IV PRN (23:30)
[2025-04-12] MEDS ORDERED: NITROGLYCERIN 0.4 MG SL TAB SL PRN (23:30)
[2025-04-12] MEDS ORDERED: DOCUSATE SOD 100 MG CAP PO PRN (23:30)
[2025-04-12] MEDS ORDERED: ACETAMINOPHEN 325 MG TAB PO PRN (23:30)
[2025-04-12] MEDS ORDERED: LORazepam 2MG/ML-1ML VIAL IV PRN (23:30)
[2025-04-12] MEDS ORDERED: ONDANSETRON HCL 4 MG/2 ML VIAL IV PRN (23:30)
[2025-04-13] VITALS (9 sets, daily range): BP systolic 130–171; BP diastolic 63–85; PULSE 66–99; RESP 16–18; TEMP 98–98.7; O2SAT 97–99
[2025-04-13] MEDS: HYDROcodone-ACET 5/325MG TAB PO PRN (01:48)
[2025-04-13] MEDS ORDERED: QUET50TA PO (01:56)
[2025-04-13] MEDS: hydrALAZINE HCL 20 MG/ML VL IV PRN (04:30)
[2025-04-13] MEDS: SODIUM CHLOR 0.9% PF (SALINE LOCK) 10ML VIAL/SYR IV SCH (05:29)
[2025-04-13] MEDS: InsuLIN REG 1unit/0.01ml Soln (100units/ml) SC SCH (06:35)
[2025-04-13] MEDS: ACCU-CHEK COMFORT CURVE STRIP VI SCH (06:35)
[2025-04-13 07:38] LABS: Hematocrit 35.2 % (36.0-46.0); Hemoglobin 12.0 g/dL (12.2-16.2); Mean Corpuscular Hemoglobin 28.9 pg (28.0-32.0); Mean Corpuscular Volume 84.9 fL (80.0-100.0); Nucleated Red Blood Cells % 0.1 %
[2025-04-13 07:46] LABS: Alanine Aminotransferase 11 U/L (7-40); Albumin 4.3 g/dL (3.2-4.8); Alkaline Phosphatase 84 U/L (46-116); Anion Gap 9 (5-15); BUN/Creatinine Ratio 15.6 (10.0-20.0); Calcium 9.2 mg/dL (8.7-10.4); Carbon Dioxide 21 mmol/L (20-31); Potassium 4.2 mmol/L (3.5-5.1); Sodium 143 mmol/L (136-145); Total Protein 6.8 g/dL (5.7-8.2)
[2025-04-13 07:47] LABS: Bilirubin, Total 0.6 mg/dL (0.2-1.0)
[2025-04-13 07:56] LABS: Blood Urea Nitrogen 26 mg/dL (9-23); Chloride 113 mmol/L (98-107); Glucose 118 mg/dL (74-106)
[2025-04-13] MEDS: CARVEDILOL 12.5 MG TAB PO SCH (09:52)
--- NOTE | 2025-04-13 10:05 | DVHINCON2 ---
Date of service: Apr 13, 2025 Referring Physician Ga Deluna NP Reason for Consultation ELEVATED CREATININE History of Present Illness This is a 69-year-old female with history of type 2 diabetes, hypertension, hyperlipidemia and cardiomyopathy sent to the emergency room by her primary doctor because of hyperkalemia. Patient says that she was seen by a kidney doctor in the past but does not recall the name. Patient has been experiencing diarrhea for the past few days. Initial evaluation in the emergency room showed the potassium was 5.1. Noted to have an elevated creatinine of 1.8. Patient is not sure of her baseline labs. Patient says she is new to the area and has not established care with the match up worker. Patient is seen and examined at bedside. Denies any complaints. Wanting to go home. Past Medical History Cancer, DM, HTN, UTI'S Past Surgical History Denies all surgeries Family History Reviewed, noncontributory to the management of this case. Social History The patient lives at home, denies smoking, alcohol or illicit drugs abuse. Allergies: Coded Allergies: NO KNOWN ALLERGIES (Unverified , 04/07/14) Home Meds Active Scripts Cyclobenzaprine Hcl (Cyclobenzaprine Hcl) 5 Mg Tab, 1 TAB PO QPM, #30 TAB Prov:KIRK CRISTINA 09/26/24 Reported Medications Quetiapine Fumerate (Seroquel) 50 Mg Tab, 1 TAB PO QPM, #30 TAB 2 Refills 04/13/25 Albuterol Sulfate (VENTOLIN MDI) 90 Mcg Ih, 90 MCG IN 04/07/14 Escitalopram Oxalate (ESCITALOPRAM OXALATE) 20 Mg Tab, 1 TAB PO QPM, #30 TAB 5 Refills 04/07/14 Trazodone Hcl (Trazodone Hcl) 100 Mg Tab, 1 TAB PO QPM, #30 TAB 1 Refill 04/07/14 Hydrocodone-Acetaminophen (VICODIN) 1 Tab Tab, 1 TAB OR Q6HP PRN for MODERATE PAIN, TAB 04/07/14 Zolpidem Tartrate (Zolpidem Tartrate) 10 Mg Tab, 1 TAB PO QPM, #30 TAB 2 Refills 04/07/14 Metoclopramide Hcl (Metoclopramide Hcl) 5 Mg Tab, 5 MG PO TID, TAB 04/07/14 Hydrochlorothiazide (Hydrochlorothiazide) 25 Mg Tab, 1 TAB PO DAILY, #30 TAB 5 Refills 04/07/14 Loratadine (Loratadine) 10 Mg Tab, 10 MG PO DAILY, TAB 04/07/14 Rosuvastatin Calcium (Crestor) 10 Mg Tab, 1 TAB PO DAILY, #30 TAB 5 Refills 04/07/14 Gabapentin (Gabapentin) 300 Mg Cap, 1 CAP PO BID, #90 CAP 5 Refills 04/07/14 Prednisone (PREDNISONE) 20 Mg Tb, 1 TAB PO, #5 TAB 04/07/14 Carvedilol (COREG) 12.5 Mg Tab, 25 MG OR BID, TAB 04/07/14 Lorazepam (ATIVAN TABLET) 0.5 Mg Tb, 1 TAB PO BID PRN for ANXIETY, #60 TAB 04/07/14 Lorazepam (ATIVAN TABLET) 0.5 Mg Tb, 1 TAB PO TID, #90 TAB 04/07/14 Lisinopril (ZESTRIL TABLET) 20 Mg Tb, 40 MG PO 04/07/14 Docusate Sodium (Doc-Q-Lace) 150 Mg/15 Ml Liq, 100 MG PO, LIQ 04/07/14 Ranitidine Hcl (Ranitidine 75) 75 Mg Tab, 150 MG PO, TAB 04/07/14 Insulin Detemir (Levemir Flexpen) Flexpen Inj, 39 SC, INJ 04/07/14 Insulin Lispro (Human) (Humalog Kwikpen) 100 Mg/Ml Inj, 100 MG SC, INJ 04/07/14 Insulin Detemir (Levemir) Inj 03/23/11 Lorazepam (Lorazepam) 2 Mg Tab 03/23/11 Carvedilol (Carvedilol) 25 Mg Tab 03/23/11 Ranitidine Hcl (Ranitidine 75) 75 Mg Tab, 75 MG OR QAM, #2 12/18/10 Zolpidem Tartrate (Zolpidem Tartrate) 10 Mg Tab, 10 MG OR HS 12/18/10 Insulin Detemir (Levemir Flexpen) Flexpen Inj, 35 SC HS 12/18/10 Hydrochlorothiazide W/Triamter (Hctz/Triamterene) 1 Tab Tab, 1 TAB OR QAM 12/18/10 Lisinopril (Lisinopril) 40 Mg Tab, 40 MG OR BID 12/17/10 Trazodone Hcl (Trazodone Hcl) 100 Mg Tab, 100 MG OR HS 12/17/10 Rosuvastatin Calcium (Crestor) 10 Mg Tab, 10 MG OR HS 12/17/10 Carvedilol (Carvedilol) 25 Mg Tab, 25 MG OR BID 12/17/10 Gabapentin (Gabapentin) 300 Mg Cap, 300 MG OR BID 12/17/10 Current Medications Current Medications Medications (Trade) Dose Ordered Sig/Estee Route PRN Reason Start Time Stop Time Status Last Admin Aspirin 81 mg DAILY PO 04/13/25 10:00 04/13/25 09:52 Atorvastatin Calcium (Lipitor) 10 mg HS PO 04/13/25 22:00 Lorazepam (Ativan Inj) 1 mg Q8HP PRN IV ANXIETY 04/12/25 23:30 Carvedilol (Coreg Tablet) 12.5 mg Q12HR PO 04/13/25 10:00 04/13/25 09:52 Hydralazine HCl (Apresoline Injection) 10 mg Q6HP PRN IV SBP>150 04/12/25 23:30 04/13/25 04:30 Amlodipine Besylate (Norvasc Tablet) 5 mg DAILY PO 04/13/25 10:00 04/13/25 09:52 Diagnostic Test (Pha) (Accu-Chek Comfort Curve T) 1 strip ACHS 04/13/25 07:00 04/13/25 06:35 Insulin Human Regular (InsuLIN R) HS SC 04/13/25 22:00 Insulin Human Regular (InsuLIN R) AC SC 04/13/25 07:00 Dextrose 50 ml UD PRN IV Blood Sugar LESS THAN 60 04/12/25 23:30 Sodium Chloride (Saline Lock Ns) 10 ml Q8HR IV 04/13/25 06:00 04/13/25 05:29 Acetaminophen/ Hydrocodone Bitart ([place] 5/325MG Tab) 1 tab Q4HP PRN PO MODERATE PAIN (4-6 PAIN SCALE) 04/12/25 23:30 04/13/25 01:48 Ondansetron HCl (Zofran) 4 mg Q4HP PRN IV NAUSEA / VOMITING 04/12/25 23:30 Docusate Sodium (Colace Capsule) 100 mg BIDPRN PRN PO FOR CONSTIPATION 04/12/25 23:30 Acetaminophen (Tylenol Tablet) 650 mg Q6HP PRN PO PAIN SCALE 1-3 OR TEMP>100.4 04/12/25 23:30 Nitroglycerin (Ntrostat Sublingual) 0.4 mg Q5MINP PRN SL FOR CHEST PAIN 04/12/25 23:30 Morphine Sulfate 2 mg Q30M PRN IV FOR CHEST PAIN 04/12/25 23:30 Review of Systems Twelve point review of systems negative except as stated in the HPI Vital Signs Vital Signs Date Time Temp Pulse Resp B/P (MAP) Pulse Ox O2 Delivery O2 Flow Rate FiO2 04/13/25 09:52 130/72 04/13/25 09:52 75 04/13/25 08:19 Room Air* 0 21 04/13/25 08:00 98.3 16 97 98.3 Physical Exam General Appearance: Alert, Oriented X3, Cooperative, No acute distress HEENT: Atraumatic, PERRLA, EOMI, Mucous membr. moist/pink Respiratory: Normal air movement Cardiovascular: Regular rate, Normal S1, Normal S2, No murmurs Abdominal: Normal bowel sounds, Soft, No tenderness, No hepatospenomegaly, No masses Extremities: No clubbing, No cyanosis, No edema, Normal pulses, No tenderness/swelling Skin: No rashes, No significant lesion Neuro: Normal speech, Normal tone, Sensation intact, Cranial nerves 3-12 NL, Reflexes 2+, Other (Generalized weakness) Psych/Mental Status: Mental status NL, Mood NL Labs/Diagnostic Data Labs Test 04/13/25 06:33 04/13/25 05:54 04/12/25 23:30 04/12/25 17:22 Range/Units POC Glucose 130 H 70-106 mg/dl White Blood Count 5.9 4.4-10.8 10^3/uL Red Blood Count 4.15 4.0-5.20 10^6/uL Hemoglobin 12.0 L 12.2-16.2 g/dL Hematocrit 35.2 L 36.0-46.0 % Mean Corpuscular Volume 84.9 80.0-100.0 fL Mean Corpuscular Hemoglobin 28.9 28.0-32.0 pg Mean Corpuscular Hemoglobin Concent 34.0 32.0-36.0 g/dL Red Cell Distribution Width 14.3 11.8-14.3 % Platelet Count 164 140-450 10^3/uL Mean Platelet Volume 8.8 6.9-10.8 fL Neutrophils (%) (Auto) 54.5 37.0-80.0 % Lymphocytes (%) (Auto) 31.6 10.0-50.0 % Monocytes (%) (Auto) 10.7 0.0-12.0 % Eosinophils (%) (Auto) 2.4 0.0-7.0 % Basophils (%) (Auto) 0.8 0.0-2.0 % Neutrophils # (Auto) 3.2 1.6-8.6 10 ^3/uL Lymphocytes # (Auto) 1.9 0.4-5.4 10 ^3/uL Monocytes # (Auto) 0.6 0-1.3 10 ^3/uL Eosinophils # (Auto) 0.1 0-0.8 10 ^3/uL Basophils # (Auto) 0 0-0.2 10 ^3/uL Nucleated Red Blood Cells 0.1 % Sodium Level 143 136-145 mmol/L Potassium Level 4.2 3.5-5.1 mmol/L Chloride Level 113 H 98-107 mmol/L Carbon Dioxide Level 21 20-31 mmol/L Anion Gap 9 5-15 Blood Urea Nitrogen 26 H 9-23 mg/dL Creatinine 1.67 H 0.550-1.02 mg/dL Glomerular Filtration Rate Calc 33 >90 mL/min BUN/Creatinine Ratio 15.6 10.0-20.0 Serum Glucose 118 H 74-106 mg/dL Calcium Level 9.2 8.7-10.4 mg/dL Total Bilirubin 0.6 0.2-1.0 mg/dL Aspartate Amino Transferase (AST) 18 13-40 U/L Alanine Aminotransferase (ALT) 11 7-40 U/L Alkaline Phosphatase 84 46-116 U/L Total Protein 6.8 5.7-8.2 g/dL Albumin 4.3 3.2-4.8 g/dL Troponin I High Sensitivity 99 *H </=34 ng/L Urine Color Yellow Yellow Urine Clarity Turbid H Clear Urine pH 6.0 5.0-9.0 Urine Specific [place] 1.017 1.001-1.035 Urine Protein 2+ H Negative Urine Ketones Negative Negative Urine Blood Negative Negative /uL Urine Nitrite Negative Negative Urine Bilirubin Negative Negative Urine Urobilinogen Normal Negative mg/dL Urine Leukocyte Esterase Negative Negative /uL Urine RBC 1 0 - 4 /hpf Urine Microscopic WBC 2 0-5 /HPF Urine Squamous Epithelial Cells Few <5 /hpf Urine Bacteria Mod H None Seen /hpf Urine Hyaline Casts Few 0 - 2 /lpf Urine Mucus Few None Seen Urine Glucose Normal Normal mg/dL Assessment BOYD superimposed on Chronic kidney disease stage IIIB Elevated troponins History of cardiomyopathy Type 2 diabetes with nephropathy Proteinuria Hypertension Hyperlipidemia Plan/Recommendation Check renal ultrasound Check urine PCR Discontinue hydrochlorothiazide/triamterene on discharge. Patient can be on hydrochlorothiazide. Continue with ELIU inhibitors Cardiology evaluation and 2D echocardiogram as the patient gives history of cardiomyopathy Plan discussed with: Patient LEONA SALAZAR MD Apr 13, 2025 10:05
--- NOTE | 2025-04-13 11:08 | DVHINCON2 ---
Date Seen: Apr 13, 2025 Referring Physician ROSCOE Deluna Reason for Consultation Elevated troponin History of Present Illness This is a 69-year-old female patient who presents to the emergency room after being sent here by her primary care physician. The patient reports that she received a call from her primary care physician's office stating that her laboratory work came back with elevated potassium levels. She prompted the patient to come to the emergency room for further evaluation. Patient does mention generalized weakness for approximately one year. She denies any cardiac symptoms. Cardiology has been consulted at this time for elevated troponin level. Initial twelve lead electrocardiogram reveals normal sinus rhythm with first-degree conduction delay and right bundle branch block. Initial troponin level of 91ng/L with flat trend thereafter. Significant past medical history includes congestive heart failure, hypertension, dyslipidemia, type 2 diabetes mellitus, chronic kidney disease, and breast cancer status post radiation/chemotherapy and lumpectomy. 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 Past Medical History Past medical history reviewed. No other significant than mentioned above. Past Surgical History Right lumpectomy in 2013 x3 Cholecystectomy Family History Family history reviewed. Social History Patient has a one pack-year history, quit smoking approximately two years ago Patient admits to previous cocaine use, last time over one year ago Patient admits to occasional marijuana use Patient denies alcohol use Allergies: Coded Allergies: NO KNOWN ALLERGIES (Unverified , 04/07/14) Home Meds Active Scripts Cyclobenzaprine Hcl (Cyclobenzaprine Hcl) 5 Mg Tab, 1 TAB PO QPM, #30 TAB Prov:KIRK CRISTINA 09/26/24 Reported Medications Quetiapine Fumerate (Seroquel) 50 Mg Tab, 1 TAB PO QPM, #30 TAB 2 Refills 04/13/25 Albuterol Sulfate (VENTOLIN MDI) 90 Mcg Ih, 90 MCG IN 04/07/14 Escitalopram Oxalate (ESCITALOPRAM OXALATE) 20 Mg Tab, 1 TAB PO QPM, #30 TAB 5 Refills 04/07/14 Trazodone Hcl (Trazodone Hcl) 100 Mg Tab, 1 TAB PO QPM, #30 TAB 1 Refill 04/07/14 Hydrocodone-Acetaminophen (VICODIN) 1 Tab Tab, 1 TAB OR Q6HP PRN for MODERATE PAIN, TAB 04/07/14 Zolpidem Tartrate (Zolpidem Tartrate) 10 Mg Tab, 1 TAB PO QPM, #30 TAB 2 Refills 04/07/14 Metoclopramide Hcl (Metoclopramide Hcl) 5 Mg Tab, 5 MG PO TID, TAB 04/07/14 Hydrochlorothiazide (Hydrochlorothiazide) 25 Mg Tab, 1 TAB PO DAILY, #30 TAB 5 Refills 04/07/14 Loratadine (Loratadine) 10 Mg Tab, 10 MG PO DAILY, TAB 04/07/14 Rosuvastatin Calcium (Crestor) 10 Mg Tab, 1 TAB PO DAILY, #30 TAB 5 Refills 04/07/14 Gabapentin (Gabapentin) 300 Mg Cap, 1 CAP PO BID, #90 CAP 5 Refills 04/07/14 Prednisone (PREDNISONE) 20 Mg Tb, 1 TAB PO, #5 TAB 04/07/14 Carvedilol (COREG) 12.5 Mg Tab, 25 MG OR BID, TAB 04/07/14 Lorazepam (ATIVAN TABLET) 0.5 Mg Tb, 1 TAB PO BID PRN for ANXIETY, #60 TAB 04/07/14 Lorazepam (ATIVAN TABLET) 0.5 Mg Tb, 1 TAB PO TID, #90 TAB 04/07/14 Lisinopril (ZESTRIL TABLET) 20 Mg Tb, 40 MG PO 04/07/14 Docusate Sodium (Doc-Q-Lace) 150 Mg/15 Ml Liq, 100 MG PO, LIQ 04/07/14 Ranitidine Hcl (Ranitidine 75) 75 Mg Tab, 150 MG PO, TAB 04/07/14 Insulin Detemir (Levemir Flexpen) Flexpen Inj, 39 SC, INJ 04/07/14 Insulin Lispro (Human) (Humalog Kwikpen) 100 Mg/Ml Inj, 100 MG SC, INJ 04/07/14 Insulin Detemir (Levemir) Inj 03/23/11 Lorazepam (Lorazepam) 2 Mg Tab 03/23/11 Carvedilol (Carvedilol) 25 Mg Tab 03/23/11 Ranitidine Hcl (Ranitidine 75) 75 Mg Tab, 75 MG OR QAM, #2 12/18/10 Zolpidem Tartrate (Zolpidem Tartrate) 10 Mg Tab, 10 MG OR HS 12/18/10 Insulin Detemir (Levemir Flexpen) Flexpen Inj, 35 SC HS 12/18/10 Hydrochlorothiazide W/Triamter (Hctz/Triamterene) 1 Tab Tab, 1 TAB OR QAM 12/18/10 Lisinopril (Lisinopril) 40 Mg Tab, 40 MG OR BID 12/17/10 Trazodone Hcl (Trazodone Hcl) 100 Mg Tab, 100 MG OR HS 12/17/10 Rosuvastatin Calcium (Crestor) 10 Mg Tab, 10 MG OR HS 12/17/10 Carvedilol (Carvedilol) 25 Mg Tab, 25 MG OR BID 12/17/10 Gabapentin (Gabapentin) 300 Mg Cap, 300 MG OR BID 12/17/10 Home Meds Home medications reviewed. Current Medications Current Medications Medications (Trade) Dose Ordered Sig/Estee Route PRN Reason Start Time Stop Time Status Last Admin Aspirin 81 mg DAILY PO 04/13/25 10:00 04/13/25 09:52 Atorvastatin Calcium (Lipitor) 10 mg HS PO 04/13/25 22:00 Lorazepam (Ativan Inj) 1 mg Q8HP PRN IV ANXIETY 04/12/25 23:30 Carvedilol (Coreg Tablet) 12.5 mg Q12HR PO 04/13/25 10:00 04/13/25 09:52 Hydralazine HCl (Apresoline Injection) 10 mg Q6HP PRN IV SBP>150 04/12/25 23:30 04/13/25 04:30 Amlodipine Besylate (Norvasc Tablet) 5 mg DAILY PO 04/13/25 10:00 04/13/25 09:52 Diagnostic Test (Pha) (Accu-Chek Comfort Curve T) 1 strip ACHS 04/13/25 07:00 04/13/25 06:35 Insulin Human Regular (InsuLIN R) HS SC 04/13/25 22:00 Insulin Human Regular (InsuLIN R) AC SC 04/13/25 07:00 Dextrose 50 ml UD PRN IV Blood Sugar LESS THAN 60 04/12/25 23:30 Sodium Chloride (Saline Lock Ns) 10 ml Q8HR IV 04/13/25 06:00 04/13/25 05:29 Acetaminophen/ Hydrocodone Bitart ([place] 5/325MG Tab) 1 tab Q4HP PRN PO MODERATE PAIN (4-6 PAIN SCALE) 04/12/25 23:30 04/13/25 01:48 Ondansetron HCl (Zofran) 4 mg Q4HP PRN IV NAUSEA / VOMITING 04/12/25 23:30 Docusate Sodium (Colace Capsule) 100 mg BIDPRN PRN PO FOR CONSTIPATION 04/12/25 23:30 Acetaminophen (Tylenol Tablet) 650 mg Q6HP PRN PO PAIN SCALE 1-3 OR TEMP>100.4 04/12/25 23:30 Nitroglycerin (Ntrostat Sublingual) 0.4 mg Q5MINP PRN SL FOR CHEST PAIN 04/12/25 23:30 Morphine Sulfate 2 mg Q30M PRN IV FOR CHEST PAIN 04/12/25 23:30 Review of Systems Constitutional: Generalized weakness Ears, Nose, & Throat: No symptom reported Eyes: No symptom reported Neurological: No symptoms reported Pulmonary/Respiratory: No symptoms reported Cardiovascular: No symptom reported Gastrointestinal: No symptom reported Genitourinary: No symptom reported Musculoskeletal: No symptom reported Skin: No symptom reported Psychiatric: No symptom reported Endocrine: No symptom reported Hematologic/Lymphatic: No symptom reported Vital Signs Vital Signs Date Time Temp Pulse Resp B/P (MAP) Pulse Ox O2 Delivery O2 Flow Rate FiO2 04/13/25 09:52 130/72 04/13/25 09:52 75 04/13/25 08:19 Room Air* 0 21 04/13/25 08:00 98.3 16 97 98.3 Physical Exam General Appearance: Cooperative. Well-developed. Well-nourished. No acute distress. Pulmonary/Respiratory: Clear, bilateral breaths sounds. Cardiovascular/Chest: Regular rate and rhythm. Peripheral Pulses: 2+ Radial (R). 2+ Radial (L). 2+ Pedal (R). 2+ Pedal (L) Abdominal Exam: Normal bowel sounds. Ankle Exam: Negative ankle edema Lower extremities: Negative lower extremity edema Neuro/Mental Status: A/OX4, coherent. Thoughts/Psych: Normal thought pattern. Appropriate mood and affect. Good judgment and insight. Appearance: No acute distress. Skin Exam: Normal inspection. Normal color. Warm and dry. Labs/Diagnostic Data Labs Test 04/13/25 06:33 04/13/25 05:54 04/12/25 23:30 04/12/25 17:22 Range/Units POC Glucose 130 H 70-106 mg/dl White Blood Count 5.9 4.4-10.8 10^3/uL Red Blood Count 4.15 4.0-5.20 10^6/uL Hemoglobin 12.0 L 12.2-16.2 g/dL Hematocrit 35.2 L 36.0-46.0 % Mean Corpuscular Volume 84.9 80.0-100.0 fL Mean Corpuscular Hemoglobin 28.9 28.0-32.0 pg Mean Corpuscular Hemoglobin Concent 34.0 32.0-36.0 g/dL Red Cell Distribution Width 14.3 11.8-14.3 % Platelet Count 164 140-450 10^3/uL Mean Platelet Volume 8.8 6.9-10.8 fL Neutrophils (%) (Auto) 54.5 37.0-80.0 % Lymphocytes (%) (Auto) 31.6 10.0-50.0 % Monocytes (%) (Auto) 10.7 0.0-12.0 % Eosinophils (%) (Auto) 2.4 0.0-7.0 % Basophils (%) (Auto) 0.8 0.0-2.0 % Neutrophils # (Auto) 3.2 1.6-8.6 10 ^3/uL Lymphocytes # (Auto) 1.9 0.4-5.4 10 ^3/uL Monocytes # (Auto) 0.6 0-1.3 10 ^3/uL Eosinophils # (Auto) 0.1 0-0.8 10 ^3/uL Basophils # (Auto) 0 0-0.2 10 ^3/uL Nucleated Red Blood Cells 0.1 % Sodium Level 143 136-145 mmol/L Potassium Level 4.2 3.5-5.1 mmol/L Chloride Level 113 H 98-107 mmol/L Carbon Dioxide Level 21 20-31 mmol/L Anion Gap 9 5-15 Blood Urea Nitrogen 26 H 9-23 mg/dL Creatinine 1.67 H 0.550-1.02 mg/dL Glomerular Filtration Rate Calc 33 >90 mL/min BUN/Creatinine Ratio 15.6 10.0-20.0 Serum Glucose 118 H 74-106 mg/dL Calcium Level 9.2 8.7-10.4 mg/dL Total Bilirubin 0.6 0.2-1.0 mg/dL Aspartate Amino Transferase (AST) 18 13-40 U/L Alanine Aminotransferase (ALT) 11 7-40 U/L Alkaline Phosphatase 84 46-116 U/L Total Protein 6.8 5.7-8.2 g/dL Albumin 4.3 3.2-4.8 g/dL Troponin I High Sensitivity 99 *H </=34 ng/L Urine Color Yellow Yellow Urine Clarity Turbid H Clear Urine pH 6.0 5.0-9.0 Urine Specific [place] 1.017 1.001-1.035 Urine Protein 2+ H Negative Urine Ketones Negative Negative Urine Blood Negative Negative /uL Urine Nitrite Negative Negative Urine Bilirubin Negative Negative Urine Urobilinogen Normal Negative mg/dL Urine Leukocyte Esterase Negative Negative /uL Urine RBC 1 0 - 4 /hpf Urine Microscopic WBC 2 0-5 /HPF Urine Squamous Epithelial Cells Few <5 /hpf Urine Bacteria Mod H None Seen /hpf Urine Hyaline Casts Few 0 - 2 /lpf Urine Mucus Few None Seen Urine Glucose Normal Normal mg/dL Assessment NSTEMI, likely type 2 Rule out structural heart disease Hypertension Dyslipidemia Type 2 diabetes mellitus Chronic kidney disease Borderline hyperkalemia History of breast cancer status post chemo/radiation/lumpectomy History of cocaine use Tobacco use Obesity Plan/Recommendation We will continue with the following plan/recommendations (Dr. Stiles): We will proceed with obtaining a transthoracic echocardiogram to evaluate cardiac function. Troponin levels mildly elevated. Patient denies any cardiac symptoms at time of assessment. Elevated blood pressures upon arrival. Continue with blood pressure control as tolerated. Continue with lipid-lowering agent. Close cardiac surveillance. Obtain UDS. Further recommendations per clinical course and progression. Thank you for allowing us to care for this patient. Please call with any questions or concerns. Critical care time spent: 44 minutes This medical document was created using an electronic medical record system with voice recognition software and computerized dictation system. Although this document has been carefully reviewed, there might still be some phonetic and t ypographical errors. Occasional wrong-word or ``sound-alike substitutions may have occurred due to the inherent limitations of voice recognition software. These areas are purely typographical due to imperfections of the software programs and do not reflect any compromise in the patient's medical care. Please read the chart carefully and recognize, using context, where these theodore bstitutions have occurred. Plan discussed with: Patient NYHA Physical activity limitations: NA Date of Service: Apr 13, 2025 Billing Provider: PARTHA OTERO Cardiology Common Codes: 20053-HROFQCH INP/OBS CARE (High) Cardiology Consultation Codes: [id number] CONSULT <45MIN PARTHA OTERO Apr 13, 2025 11:08
--- NOTE | 2025-04-13 12:05 | DVH ---
CLINICAL HISTORY: Elevated creatinine TECHNIQUE: Complete ultrasound exam of the kidneys and bladder was performed. COMPARISON: None FINDINGS: The right kidney has normal echogenicity and measures 9.3 cm. There is no focal parenchymal abnormali ty or evidence for stone. There is no hydronephrosis. The left kidney has normal echogenicity and measures 9.3 cm. There is no focal parenchymal abnormali ty or evidence for stone. There is no hydronephrosis. The bladder is not well distended and therefore not well evaluated. IMPRESSION: NO SIGNIFICANT SONOGRAPHIC ABNORMALITY OF THE KIDNEYS.
[2025-04-13 12:23] LABS: Protein, Urine 175.2 mg/dL (1-14)
[2025-04-13 14:15] LABS: Magnesium 2.1 mg/dL (1.6-2.6); Triglycerides 146.0 mg/dL (< 150)
[2025-04-13 14:17] LABS: Cholesterol 231.0 mg/dL (< 200); HDL Cholesterol 54.0 mg/dL (40-59)
--- NOTE | 2025-04-13 15:21 | DVHPN2 ---
Assessment/Plan Assessment/Plan Subjective 69 yo F with IDDM, cardiomyopathy, breast cancer s/p radiation, chemotherapy, and lumpectomy admitted for elevated potassium. Patient denies any current complaints and states she is completely asymptomatic. Reports adherence to her medication regimen. Recent A1c was 7, indicating fair diabetes control. In ED, initial labs showed potassium of 5.1, which has since improved to 4.2. Given hydralazine and aspirin in ED. Renal ultrasound performed and found to be normal. Blood pressure on admission elevated at 161/76, but remains asymptomatic. Medications and Supplements - [id number] units - Lispro sliding scale - Coreg 25 mg twice daily - Citalopram - Gabapentin - Hydrocortisone / triamterene - Loratadine - Reglan - Seroquel - Crestor - Insulin Review of Systems - General: Denies fever, chills, fatigue, muscle aches, appetite or weight changes - Cardiovascular: Denies chest pain, palpitations, edema - Respiratory: Denies shortness of breath - Gastrointestinal: Denies abdominal pain Objective Vital Signs BP 161/76 HR 79 RR 18 SPO2 98% Physical Examination AOx4 PERLLA EOM normal MMM Clear breath sounds RRR Abdomen soft nontender No LE edema Laboratory, Imaging, and Diagnostic Test Results A1C 7 BG 134 Cr 1.8 K 5.1 K 4.2 Cl 115 Troponin 91 EKG Normal sinus rhythm with 1st-degree conduction delay and right bundle branch block Renal ultrasound Normal Assessment & Plan Hyperkalemia IDDM HTN Cardiomyopathy Breast cancer history Type 2 VT demand ischemia CKD stage 3 continue monitoring potassium levels resume home medications Coreg, lisinopril basal bolus ISS await echo results diet cardiac dvt ppx ambulatory full code Plan discussed with: Patient My Orders Orders - RAJ PARKER MD Procedure Category Date Status Time Insulin Lantus PHA 04/13/25 Logged (Glargine) (Lantus) 15:15 Insulin Lantus PHA 04/14/25 Logged (Glargine) (Lantus) 07:00 Insulin Lispro PHA 04/13/25 Logged (Human) (Humalog) 17:00 Basic Metabolic Panel LAB 04/14/25 Verified 04:00 Complete Blood Count LAB 04/14/25 Verified 04:00 Date of Service: Apr 13, 2025 Billing Provider: RAJ PARKER MD Common Visit Codes: [id number] INP/OBS CARE(HIGH) RAJ PARKER MD Apr 13, 2025 15:21
[2025-04-13] MEDS: INSULIN LANTUS (GLARGINE) 1 /0.01ml (100units/ml) SC ONE (15:48)
[2025-04-13] MEDS: INSULIN LISPRO (HUMAN) 100 UNITS/ML ML SC SCH (16:32)
[2025-04-13] MEDS: MELATONIN 5 MG TAB PO ONE (21:17)
[2025-04-13] MEDS: ATORVASTATIN 20 MG TAB PO SCH (21:18)
[2025-04-13] MEDS ORDERED: InsuLIN REG 1unit/0.01ml Soln (100units/ml) SC SCH (22:00)
--- NOTE | 2025-04-13 23:56 | DVHINCON2 ---
Date Seen: Apr 13, 2025 Referring Physician ROSCOE Deluna Reason for Consultation Elevated troponin History of Present Illness This is a 69-year-old female with a past medical history of congestive heart failure, hypertension, dyslipidemia, type 2 diabetes mellitus, chronic kidney disease, and breast cancer status post radiation/chemotherapy and lumpectomy who presents to the ED after being sent here by her primary care physician. The patient reports that she received a call from her primary care physician's office stating that her laboratory work came back with elevated potassium levels. Patient's PCP prompted the patient to come to the emergency room for further evaluation. Patient does mention generalized weakness for approximately one year. She denies any cardiac symptoms. Cardiology has been consulted at this time for elevated troponin level. Initial twelve lead electrocardiogram reveals normal sinus rhythm with first-degree conduction delay and right bundle branch block. Initial troponin level of 91ng/L with flat trend thereafter. 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 Past Medical History Past medical history reviewed. No other significant than mentioned above. Past Surgical History Right lumpectomy in 2013 x3 Cholecystectomy Allergies: Coded Allergies: NO KNOWN ALLERGIES (Unverified , 04/07/14) Home Meds Active Scripts Cyclobenzaprine Hcl (Cyclobenzaprine Hcl) 5 Mg Tab, 1 TAB PO QPM, #30 TAB Prov:KIRK CRISTINA 09/26/24 Reported Medications Quetiapine Fumerate (Seroquel) 50 Mg Tab, 1 TAB PO QPM, #30 TAB 2 Refills 04/13/25 Albuterol Sulfate (VENTOLIN MDI) 90 Mcg Ih, 90 MCG IN 04/07/14 Escitalopram Oxalate (ESCITALOPRAM OXALATE) 20 Mg Tab, 1 TAB PO QPM, #30 TAB 5 Refills 04/07/14 Trazodone Hcl (Trazodone Hcl) 100 Mg Tab, 1 TAB PO QPM, #30 TAB 1 Refill 04/07/14 Hydrocodone-Acetaminophen (VICODIN) 1 Tab Tab, 1 TAB OR Q6HP PRN for MODERATE PAIN, TAB 04/07/14 Zolpidem Tartrate (Zolpidem Tartrate) 10 Mg Tab, 1 TAB PO QPM, #30 TAB 2 Refills 04/07/14 Metoclopramide Hcl (Metoclopramide Hcl) 5 Mg Tab, 5 MG PO TID, TAB 04/07/14 Hydrochlorothiazide (Hydrochlorothiazide) 25 Mg Tab, 1 TAB PO DAILY, #30 TAB 5 Refills 04/07/14 Loratadine (Loratadine) 10 Mg Tab, 10 MG PO DAILY, TAB 04/07/14 Rosuvastatin Calcium (Crestor) 10 Mg Tab, 1 TAB PO DAILY, #30 TAB 5 Refills 04/07/14 Gabapentin (Gabapentin) 300 Mg Cap, 1 CAP PO BID, #90 CAP 5 Refills 04/07/14 Prednisone (PREDNISONE) 20 Mg Tb, 1 TAB PO, #5 TAB 04/07/14 Carvedilol (COREG) 12.5 Mg Tab, 25 MG OR BID, TAB 04/07/14 Lorazepam (ATIVAN TABLET) 0.5 Mg Tb, 1 TAB PO BID PRN for ANXIETY, #60 TAB 04/07/14 Lorazepam (ATIVAN TABLET) 0.5 Mg Tb, 1 TAB PO TID, #90 TAB 04/07/14 Lisinopril (ZESTRIL TABLET) 20 Mg Tb, 40 MG PO 04/07/14 Docusate Sodium (Doc-Q-Lace) 150 Mg/15 Ml Liq, 100 MG PO, LIQ 04/07/14 Ranitidine Hcl (Ranitidine 75) 75 Mg Tab, 150 MG PO, TAB 04/07/14 Insulin Detemir (Levemir Flexpen) Flexpen Inj, 39 SC, INJ 04/07/14 Insulin Lispro (Human) (Humalog Kwikpen) 100 Mg/Ml Inj, 100 MG SC, INJ 04/07/14 Insulin Detemir (Levemir) Inj 03/23/11 Lorazepam (Lorazepam) 2 Mg Tab 03/23/11 Carvedilol (Carvedilol) 25 Mg Tab 03/23/11 Ranitidine Hcl (Ranitidine 75) 75 Mg Tab, 75 MG OR QAM, #2 12/18/10 Zolpidem Tartrate (Zolpidem Tartrate) 10 Mg Tab, 10 MG OR HS 12/18/10 Insulin Detemir (Levemir Flexpen) Flexpen Inj, 35 SC HS 12/18/10 Hydrochlorothiazide W/Triamter (Hctz/Triamterene) 1 Tab Tab, 1 TAB OR QAM 12/18/10 Lisinopril (Lisinopril) 40 Mg Tab, 40 MG OR BID 12/17/10 Trazodone Hcl (Trazodone Hcl) 100 Mg Tab, 100 MG OR HS 12/17/10 Rosuvastatin Calcium (Crestor) 10 Mg Tab, 10 MG OR HS 12/17/10 Carvedilol (Carvedilol) 25 Mg Tab, 25 MG OR BID 12/17/10 Gabapentin (Gabapentin) 300 Mg Cap, 300 MG OR BID 12/17/10 Current Medications Current Medications Medications (Trade) Dose Ordered Sig/Estee Route PRN Reason Start Time Stop Time Status Last Admin Aspirin 81 mg DAILY PO 04/13/25 10:00 04/13/25 09:52 Atorvastatin Calcium (Lipitor) 10 mg HS PO 04/13/25 22:00 Lorazepam (Ativan Inj) 1 mg Q8HP PRN IV ANXIETY 04/12/25 23:30 04/13/25 14:36 DC Carvedilol (Coreg Tablet) 12.5 mg Q12HR PO 04/13/25 10:00 04/13/25 09:52 Hydralazine HCl (Apresoline Injection) 10 mg Q6HP PRN IV SBP>150 04/12/25 23:30 04/13/25 14:36 DC 04/13/25 04:30 Amlodipine Besylate (Norvasc Tablet) 5 mg DAILY PO 04/13/25 10:00 04/13/25 09:52 Diagnostic Test (Pha) (Accu-Chek Comfort Curve T) 1 strip ACHS 04/13/25 07:00 04/13/25 11:07 Insulin Human Regular (InsuLIN R) HS SC 04/13/25 22:00 04/13/25 14:36 DC Insulin Human Regular (InsuLIN R) AC SC 04/13/25 07:00 04/13/25 14:36 DC 04/13/25 11:08 Dextrose 50 ml UD PRN IV Blood Sugar LESS THAN 60 04/12/25 23:30 Sodium Chloride (Saline Lock Ns) 10 ml Q8HR IV 04/13/25 06:00 04/13/25 11:07 Acetaminophen/ Hydrocodone Bitart ([place] 5/325MG Tab) 1 tab Q4HP PRN PO MODERATE PAIN (4-6 PAIN SCALE) 04/12/25 23:30 04/13/25 01:48 Ondansetron HCl (Zofran) 4 mg Q4HP PRN IV NAUSEA / VOMITING 04/12/25 23:30 04/13/25 14:36 DC Docusate Sodium (Colace Capsule) 100 mg BIDPRN PRN PO FOR CONSTIPATION 04/12/25 23:30 04/13/25 14:36 DC Acetaminophen (Tylenol Tablet) 650 mg Q6HP PRN PO PAIN SCALE 1-3 OR TEMP>100.4 04/12/25 23:30 Nitroglycerin (Ntrostat Sublingual) 0.4 mg Q5MINP PRN SL FOR CHEST PAIN 04/12/25 23:30 04/13/25 14:36 DC Morphine Sulfate 2 mg Q30M PRN IV FOR CHEST PAIN 04/12/25 23:30 04/13/25 14:36 DC Insulin Glargine (Lantus) 20 units QAM SC 04/14/25 07:00 Insulin Human Lispro (HumaLOG) AC NC 04/13/25 17:00 Review of Systems Constitutional: Generalized weakness Ears, Nose, & Throat: No symptom reported Eyes: No symptom reported Neurological: No symptoms reported Pulmonary/Respiratory: No symptoms reported Cardiovascular: No symptom reported Gastrointestinal: No symptom reported Genitourinary: No symptom reported Musculoskeletal: No symptom reported Skin: No symptom reported Psychiatric: No symptom reported Endocrine: No symptom reported Hematologic/Lymphatic: No symptom reported Vital Signs Vital Signs Date Time Temp Pulse Resp B/P (MAP) Pulse Ox O2 Delivery O2 Flow Rate FiO2 04/13/25 13:00 98.2 66 16 146/74 (98) 98 98.2 04/13/25 08:19 Room Air* 0 21 Physical Exam GENERAL: Alert and oriented x 3. No acute distress. EYES: PERRL, EOMI. Anicteric. HENT: Moist mucous membranes. LUNGS: Clear to auscultation bilaterally. CARDIOVASCULAR: Regular rate and rhythm. ABDOMEN: Soft, nontender and nondistended. EXTREMITIES: No edema. NEUROLOGIC: No focal neurological deficits. SKIN: Warm, dry. Labs/Diagnostic Data Labs Test 04/13/25 15:41 04/13/25 05:54 04/12/25 23:30 04/12/25 17:22 Range/Units POC Glucose 155 H 70-106 mg/dl White Blood Count 5.9 4.4-10.8 10^3/uL Red Blood Count 4.15 4.0-5.20 10^6/uL Hemoglobin 12.0 L 12.2-16.2 g/dL Hematocrit 35.2 L 36.0-46.0 % Mean Corpuscular Volume 84.9 80.0-100.0 fL Mean Corpuscular Hemoglobin 28.9 28.0-32.0 pg Mean Corpuscular Hemoglobin Concent 34.0 32.0-36.0 g/dL Red Cell Distribution Width 14.3 11.8-14.3 % Platelet Count 164 140-450 10^3/uL Mean Platelet Volume 8.8 6.9-10.8 fL Neutrophils (%) (Auto) 54.5 37.0-80.0 % Lymphocytes (%) (Auto) 31.6 10.0-50.0 % Monocytes (%) (Auto) 10.7 0.0-12.0 % Eosinophils (%) (Auto) 2.4 0.0-7.0 % Basophils (%) (Auto) 0.8 0.0-2.0 % Neutrophils # (Auto) 3.2 1.6-8.6 10 ^3/uL Lymphocytes # (Auto) 1.9 0.4-5.4 10 ^3/uL Monocytes # (Auto) 0.6 0-1.3 10 ^3/uL Eosinophils # (Auto) 0.1 0-0.8 10 ^3/uL Basophils # (Auto) 0 0-0.2 10 ^3/uL Nucleated Red Blood Cells 0.1 % Sodium Level 143 136-145 mmol/L Potassium Level 4.2 3.5-5.1 mmol/L Chloride Level 113 H 98-107 mmol/L Carbon Dioxide Level 21 20-31 mmol/L Anion Gap 9 5-15 Blood Urea Nitrogen 26 H 9-23 mg/dL Creatinine 1.67 H 0.550-1.02 mg/dL Glomerular Filtration Rate Calc 33 >90 mL/min BUN/Creatinine Ratio 15.6 10.0-20.0 Serum Glucose 118 H 74-106 mg/dL Hemoglobin A1c 7.0 H <5.7 % A1C Calcium Level 9.2 8.7-10.4 mg/dL Magnesium Level 2.1 1.6-2.6 mg/dL Total Bilirubin 0.6 0.2-1.0 mg/dL Aspartate Amino Transferase (AST) 18 13-40 U/L Alanine Aminotransferase (ALT) 11 7-40 U/L Alkaline Phosphatase 84 46-116 U/L Total Protein 6.8 5.7-8.2 g/dL Albumin 4.3 3.2-4.8 g/dL Triglycerides Level 146 < 150 mg/dL Cholesterol Level 231 H < 200 mg/dL LDL Cholesterol 165 H < 100 mg/dL HDL Cholesterol 54 40-59 mg/dL Thyroid Stimulating Hormone (TSH) 1.75 0.55-4.78 uIU/mL Troponin I High Sensitivity 99 *H </=34 ng/L Urine Color Yellow Yellow Urine Clarity Turbid H Clear Urine pH 6.0 5.0-9.0 Urine Specific [place] 1.017 1.001-1.035 Urine Protein 2+ H Negative Urine Ketones Negative Negative Urine Blood Negative Negative /uL Urine Nitrite Negative Negative Urine Bilirubin Negative Negative Urine Urobilinogen Normal Negative mg/dL Urine Leukocyte Esterase Negative Negative /uL Urine RBC 1 0 - 4 /hpf Urine Microscopic WBC 2 0-5 /HPF Urine Squamous Epithelial Cells Few <5 /hpf Urine Bacteria Mod H None Seen /hpf Urine Hyaline Casts Few 0 - 2 /lpf Urine Mucus Few None Seen Urine Glucose Normal Normal mg/dL Test 04/12/25 07:22 Range/Units Urine Creatinine 281.80 H 30.0-125.0 mg/dL Urine Total Protein 175.2 H 1-14 mg/dL Assessment NSTEMI, likely type 2. Rule out structural heart disease. Hypertension. Dyslipidemia. Type 2 diabetes mellitus. Chronic kidney disease. Borderline hyperkalemia. History of breast cancer status post chemo/radiation/lumpectomy. History of cocaine use. Tobacco use. Obesity. Plan/Recommendation I agree with your ongoing assessment and care of plan. Patient has been seen by Chelsea Mulligan NP on my behalf, her and I discussed the plan with the patient. We will proceed with obtaining a transthoracic echocardiogram to evaluate cardiac function. Troponin levels mildly elevated. Patient denies any cardiac symptoms at time of assessment. Elevated blood pressures upon arrival. Continue with blood pressure control as tolerated. Continue with lipid-lowering agent. Close cardiac surveillance. Obtain UDS. Further recommendations per clinical course and progression. Additional plan as per the hospital course. Plan discussed with: Patient NYHA Physical activity limitations: NA Date of Service: Apr 13, 2025 Billing Provider: DEONDRE GRIDER MD Cardiology Common Codes: [id number] INP/OBS CARE (High) Cardiology Consultation Codes: [id number] CONSULT <45MIN DEONDRE GRIDER MD Apr 13, 2025 16:10
[2025-04-14 01:00] VITALS: BP 151/73; PULSE 60; RESP 17; TEMP 98.6; O2SAT 99
[2025-04-14 05:00] VITALS: BP 156/89; PULSE 57; RESP 17; TEMP 98.7; O2SAT 99
[2025-04-14] MEDS: INSULIN LANTUS (GLARGINE) 1 /0.01ml (100units/ml) SC SCH (06:07)
[2025-04-14 07:15] LABS: Hematocrit 38.5 % (36.0-46.0); Hemoglobin 13.2 g/dL (12.2-16.2); Mean Corpuscular Hemoglobin 28.9 pg (28.0-32.0); Mean Corpuscular Volume 84.3 fL (80.0-100.0); Nucleated Red Blood Cells % 0.0 %
[2025-04-14 07:30] VITALS: RESP 16
[2025-04-14 07:30] LABS: Potassium 4.2 mmol/L (3.5-5.1); Sodium 141 mmol/L (136-145)
[2025-04-14 07:31] LABS: Calcium 9.1 mg/dL (8.7-10.4)
[2025-04-14 07:33] LABS: Chloride 111 mmol/L (98-107)
[2025-04-14 07:36] LABS: BUN/Creatinine Ratio 13.2 (10.0-20.0); Blood Urea Nitrogen 20 mg/dL (9-23)
[2025-04-14 07:38] LABS: Glucose 147 mg/dL (74-106)
[2025-04-14 08:00] VITALS: PULSE 60
[2025-04-14 08:21] LABS: Anion Gap 8 (5-15); Carbon Dioxide 22 mmol/L (20-31)
--- NOTE | 2025-04-14 09:54 | DVHPN2 ---
Progress Note - Dictate Date Seen: Apr 14, 2025 Medical Necessity Reason Pt with a Central, PICC or Fol: No Subjective no acute issues overnight vital signs Vital Sign Date Time Temp Pulse Resp B/P (MAP) Pulse Ox O2 Delivery O2 Flow Rate FiO2 04/14/25 08:59 160/80 04/14/25 08:58 63 04/14/25 07:30 16 Room Air* 0 21 04/14/25 05:00 98.7 99 98.7 Total Intake and Output 04/13/25 04/13/25 04/14/25 15:00 23:00 07:00 Intake Total 120 ml 1300 ml 550 ml Balance 120 ml 1300 ml 550 ml medications Current Medications Medications Dose Ordered Sig/Estee Route Start Time Stop Time Status Last Admin Dose Admin Aspirin 81 mg DAILY PO 04/13/25 10:00 04/14/25 08:58 81 MG Atorvastatin Calcium 10 mg HS PO 04/13/25 22:00 04/13/25 21:18 10 MG Carvedilol 12.5 mg Q12HR PO 04/13/25 10:00 04/14/25 08:58 12.5 MG Amlodipine Besylate 5 mg DAILY PO 04/13/25 10:00 04/14/25 08:59 5 MG Diagnostic Test (Pha) 1 strip ACHS 04/13/25 07:00 04/14/25 06:05 1 STRIP Dextrose 50 ml UD PRN IV 04/12/25 23:30 Sodium Chloride 10 ml Q8HR IV 04/13/25 06:00 04/14/25 06:01 10 ML Acetaminophen/ Hydrocodone Bitart 1 tab Q4HP PRN PO 04/12/25 23:30 04/14/25 06:17 1 TAB Acetaminophen 650 mg Q6HP PRN PO 04/12/25 23:30 Insulin Glargine 20 units QAM SC 04/14/25 07:00 04/14/25 06:07 20 UNITS Insulin Human Lispro AC SC 04/13/25 17:00 objective General Appearance: Alert, Oriented X3, Cooperative, No acute distress HEENT: Atraumatic, PERRLA, EOMI, Mucous membr. moist/pink Respiratory: Normal air movement Cardiovascular: Regular rate, Normal S1, Normal S2, No murmurs Abdominal: Normal bowel sounds, Soft, No tenderness, No hepatospenomegaly, No masses Extremities: No clubbing, No cyanosis, No edema, Normal pulses, No tenderness/swelling Skin: No rashes, No significant lesion Neuro: Normal speech, Normal tone, Sensation intact, Cranial nerves 3-12 NL, Reflexes 2+, Other (Generalized weakness) Psych/Mental Status: Mental status NL, Mood NL laboratory and microbiology Laboratory Tests 04/14/25 06:46 Test 04/14/25 06:46 Range/Units Serum Glucose 147 H 74-106 mg/dL Problem List Chronic kidney disease stage IIIB Elevated troponins History of cardiomyopathy Type 2 diabetes with nephropathy Proteinuria Hypertension Hyperlipidemia h/o breast CA s/p lumpectomy Assessment/Plan GFR stable . Urine PCR 0.6 We will follow up on the echo results. Patient is stable from renal standpoint. She has been advised to follow up with Nephrology in the outpatient setting. Plan discussed with: Patient LEOAN SALAZAR MD Apr 14, 2025 09:54
[2025-04-14 12:32] VITALS: BP 154/79; PULSE 57; RESP 18; TEMP 98.2; O2SAT 99
[2025-04-14] MEDS ORDERED: AML5T PO (16:47)
[2025-04-14] MEDS ORDERED: HYDR25TA5 PO (16:47)
[2025-04-14 16:59] VITALS: BP 160/80; PULSE 62; RESP 16; TEMP 97.6; O2SAT 99
--- NOTE | 2025-04-14 18:50 | DVHDS2 ---
Discharge Summary Date of Admission Apr 12, 2025 at 23:18 Date of Discharge: Apr 14, 2025 Labs/Diagnostic Data: Laboratory Results Test 04/14/25 16:38 04/14/25 06:46 04/13/25 05:54 04/12/25 23:30 POC Glucose 138 mg/dl (70-106) White Blood Count 4.7 10^3/uL (4.4-10.8) Red Blood Count 4.57 10^6/uL (4.0-5.20) Hemoglobin 13.2 g/dL (12.2-16.2) Hematocrit 38.5 % (36.0-46.0) Mean Corpuscular Volume 84.3 fL (80.0-100.0) Mean Corpuscular Hemoglobin 28.9 pg (28.0-32.0) Mean Corpuscular Hemoglobin Concent 34.3 g/dL (32.0-36.0) Red Cell Distribution Width 13.6 % (11.8-14.3) Platelet Count 176 10^3/uL (140-450) Mean Platelet Volume 9.0 fL (6.9-10.8) Neutrophils (%) (Auto) 54.9 % (37.0-80.0) Lymphocytes (%) (Auto) 32.2 % (10.0-50.0) Monocytes (%) (Auto) 9.1 % (0.0-12.0) Eosinophils (%) (Auto) 3.4 % (0.0-7.0) Basophils (%) (Auto) 0.4 % (0.0-2.0) Neutrophils # (Auto) 2.6 10 ^3/uL (1.6-8.6) Lymphocytes # (Auto) 1.5 10 ^3/uL (0.4-5.4) Monocytes # (Auto) 0.4 10 ^3/uL (0-1.3) Eosinophils # (Auto) 0.2 10 ^3/uL (0-0.8) Basophils # (Auto) 0 10 ^3/uL (0-0.2) Nucleated Red Blood Cells 0.0 % Sodium Level 141 mmol/L (136-145) Potassium Level 4.2 mmol/L (3.5-5.1) Chloride Level 111 mmol/L (98-107) Carbon Dioxide Level 22 mmol/L (20-31) Anion Gap 8 (5-15) Blood Urea Nitrogen 20 mg/dL (9-23) Creatinine 1.52 mg/dL (0.550-1.02) Glomerular Filtration Rate Calc 37 mL/min (>90) BUN/Creatinine Ratio 13.2 (10.0-20.0) Serum Glucose 147 mg/dL (74-106) Calcium Level 9.1 mg/dL (8.7-10.4) Hemoglobin A1c 7.0 % A1C (<5.7) Magnesium Level 2.1 mg/dL (1.6-2.6) Total Bilirubin 0.6 mg/dL (0.2-1.0) Aspartate Amino Transferase (AST) 18 U/L (13-40) Alanine Aminotransferase (ALT) 11 U/L (7-40) Alkaline Phosphatase 84 U/L (46-116) Total Protein 6.8 g/dL (5.7-8.2) Albumin 4.3 g/dL (3.2-4.8) Triglycerides Level 146 mg/dL (< 150) Cholesterol Level 231 mg/dL (< 200) LDL Cholesterol 165 mg/dL (< 100) HDL Cholesterol 54 mg/dL (40-59) Thyroid Stimulating Hormone (TSH) 1.75 uIU/mL (0.55-4.78) Troponin I High Sensitivity 99 ng/L (</=34) Test 04/12/25 17:22 04/12/25 07:22 Urine Color Yellow (Yellow) Urine Clarity Turbid (Clear) Urine pH 6.0 (5.0-9.0) Urine Specific [place] 1.017 (1.001-1.035) Urine Protein 2+ (Negative) Urine Ketones Negative (Negative) Urine Blood Negative /uL (Negative) Urine Nitrite Negative (Negative) Urine Bilirubin Negative (Negative) Urine Urobilinogen Normal mg/dL (Negative) Urine Leukocyte Esterase Negative /uL (Negative) Urine RBC 1 /hpf (0 - 4) Urine Microscopic WBC 2 /HPF (0-5) Urine Squamous Epithelial Cells Few /hpf (<5) Urine Bacteria Mod /hpf (None Seen) Urine Hyaline Casts Few /lpf (0 - 2) Urine Mucus Few (None Seen) Urine Glucose Normal mg/dL (Normal) Urine Creatinine 281.80 mg/dL (30.0-125.0) Urine Total Protein 175.2 mg/dL (1-14) Other Laboratory Tests 04/14/25 06:46 Brief Hx & Hospital Course: 69 yo F with IDDM, cardiomyopathy, breast cancer s/p radiation, chemotherapy, and lumpectomy admitted for elevated potassium. Patient denies any current complaints and states she is completely asymptomatic. Reports adherence to her medication regimen. Recent A1c was 7, indicating fair diabetes control. In ED, initial labs showed potassium of 5.1, which has since improved to 4.2. Given hydralazine and aspirin in ED. Renal ultrasound performed and found to be normal. Blood pressure on admission elevated at 161/76, but remains asymptomatic. K stable. likely triggered by triamterene. will dc and start amlodipine and hctz only. patient take meds today and will resume tomorrow with new meds once taken from pharmacy. stable to DC home Condition at Discharge: Good Final Diagnosis/Problems List Hyperkalemia IDDM HTN Cardiomyopathy Breast cancer history Type 2 [place] demand ischemia CKD stage 3 Discharge Disposition: Home Discharge Instruct/Medications Diet: See Comment Diet comment: avoid avocado, yams, potatos Activity: No Restrictions, As Tolerated Medications: stop taking hctz/triamterene. start taking hydrochlorothiazide only Scheduled Amlodipine Besylate (Norvasc Tablet), 5 MG PO DAILY Carvedilol (Carvedilol), 25 MG OR BID, (Reported) Cyclobenzaprine Hcl (Cyclobenzaprine Hcl), 1 TAB PO QPM Escitalopram Oxalate (Escitalopram Oxalate), 1 TAB PO QPM, (Reported) Gabapentin (Gabapentin), 1 CAP PO BID, (Reported) Hctz (Hydrochlorothiazide), 25 MG PO DAILY Insulin Detemir (Levemir Flexpen), 35 SC HS, (Reported) Loratadine (Loratadine), 10 MG PO DAILY, (Reported) Lorazepam (Ativan Tablet), 1 TAB PO TID, (Reported) Quetiapine Fumerate (Seroquel), 1 TAB PO QPM, (Reported) Rosuvastatin Calcium (Crestor), 1 TAB PO DAILY, (Reported) Trazodone Hcl (Trazodone Hcl), 1 TAB PO QPM, (Reported) Zolpidem Tartrate (Zolpidem Tartrate), 10 MG OR HS, (Reported) Miscellaneous Medications Albuterol Sulfate (Ventolin Mdi), 90 MCG IN, (Reported) Insulin Detemir (Levemir), (Reported) Insulin Detemir (Levemir Flexpen), 39 SC, (Reported) Insulin Lispro (Human) (Humalog Kwikpen), 100 MG SC, (Reported) Discontinued Medications Carvedilol (Carvedilol), (Reported) Carvedilol (Coreg), 25 MG OR BID, (Reported) Docusate Sodium (Doc-Q-Lace), 100 MG PO, (Reported) Gabapentin (Gabapentin), 300 MG OR BID, (Reported) Hydrochlorothiazide (Hydrochlorothiazide), 1 TAB PO DAILY, (Reported) Hydrochlorothiazide W/Triamter (Hctz/Triamterene), 1 TAB OR QAM, (Reported) Hydrocodone-Acetaminophen (Vicodin), 1 TAB OR Q6HP PRN for MODERATE PAIN, (Reported) Lisinopril (Lisinopril), 40 MG OR BID, (Reported) Lisinopril (Zestril Tablet), 40 MG PO, (Reported) Lorazepam (Lorazepam), (Reported) Lorazepam (Ativan Tablet), 1 TAB PO BID PRN for ANXIETY, (Reported) Metoclopramide Hcl (Metoclopramide Hcl), 5 MG PO TID, (Reported) Prednisone (Prednisone), 1 TAB PO, (Reported) Ranitidine Hcl (Ranitidine 75), 75 MG OR QAM, (Reported) Ranitidine Hcl (Ranitidine 75), 150 MG PO, (Reported) Rosuvastatin Calcium (Crestor), 10 MG OR HS, (Reported) Trazodone Hcl (Trazodone Hcl), 100 MG OR HS, (Reported) Zolpidem Tartrate (Zolpidem Tartrate), 1 TAB PO QPM, (Reported) Discharge Statement: "Patient was advised to return to the ER or call 911 if any headaches, dizziness, shortness of breath, chest pain, abdominal pain, bleeding, fevers, or worsening of medical condition. Patient was counseled about treatment plan, medications, possible side effects, patientverbalized understanding. All questions were answered to the best of my ability. This discharge took greater then 30 minutes in planning, reviewing documentation, counseling the patient, and discussing with other team members." ASSESSMENT ASSESSMENT Assessment hyperk Date of Service: Apr 14, 2025 Billing Provider: RAJ PARKER MD Common Visit Codes: 49800-[id number] DISCH DAY >30min RAJ PARKER MD Apr 14, 2025 18:50
--- NOTE | 2025-04-14 23:08 | DVHPN2 ---
Progress Note - Dictate Date Seen: Apr 14, 2025 Medical Necessity Reason Pt with a Central, PICC or Fol: No Subjective Patient was seen and evaluated in follow up. No overnight events. Patient has no new complaints at this time. Echocardiogram is ordered/pending. Telemetry reviewed. vital signs Vital Sign Date Time Temp Pulse Resp B/P (MAP) Pulse Ox O2 Delivery O2 Flow Rate FiO2 04/14/25 16:59 97.6 62 16 160/80 (106) 99 97.6 04/14/25 07:30 Room Air* 0 21 Total Intake and Output 04/13/25 04/13/25 04/14/25 15:00 23:00 07:00 Intake Total 120 ml 1300 ml 550 ml Balance 120 ml 1300 ml 550 ml objective GENERAL: Alert and oriented x 3. No acute distress. EYES: PERRL, EOMI. Anicteric. HENT: Moist mucous membranes. LUNGS: Clear to auscultation bilaterally. CARDIOVASCULAR: Regular rate and rhythm. ABDOMEN: Soft, nontender and nondistended. EXTREMITIES: No edema. NEUROLOGIC: No focal neurological deficits. SKIN: Warm, dry. laboratory and microbiology Laboratory Tests 04/14/25 06:46 Test 04/14/25 06:46 Range/Units Serum Glucose 147 H 74-106 mg/dL Problem List NSTEMI, likely type 2. Rule out structural heart disease. Hypertension. Dyslipidemia. Type 2 diabetes mellitus. Chronic kidney disease. Borderline hyperkalemia. History of breast cancer status post chemo/radiation/lumpectomy. History of cocaine use. Tobacco use. Obesity. Assessment/Plan Continued all current supportive medical care. Amlodipine, Coreg. Aspirin. [place] for pain management. Echocardiogram. Additional plan as per the hospital course. Plan discussed with: Patient DEONDRE GRIDER MD Apr 14, 2025 22:54
--- NOTE | 2025-04-15 18:43 | DVHSR ---
APPROVED REPORT EXAM: Two-dimensional and M-mode echocardiogram with Doppler and color Doppler. Blood Pressure: 156/89 mmHg INDICATION Evaluate Cardiac Function RISK FACTORS Height: 5' 3", Weight: 168 DIMENSIONS LVDd5.8 (3.8-5.7cm)LA (2D)4.1 (1.9-4.0cm)Aortic Root3.3 (2.0-3.7cm) LVDs4.6 (2.5-4.0cm)LA (MM) (1.9-4.0cm)Aortic Cusp Exc1.7 (1.5-2.0cm) EF (%) 40.0 (55-70%)Rt. Atrium4.3 (1.9-4.0cm)Asc. Aorta cm IVSd1.6 (0.7-1.1cm)RV (D) (1.8-2.4cm) PWd1.2 (0.7-1.1cm) Mitral Valve MitralMitral Stenosis E wave0.80m/sMV Mean GR.mmHg A wave1.10m/sMV Peak GR.mmHg E/A ratio0.72D MVAcm2 Aortic Valve Aortic ValveAortic Stenosis V10.50m/Alistair Mean GR.5mmHg V21.50m/Alistair Peak GR.9mmHg LVOT Diameter2.1 (1.8-2.4cm)Doppler AVA1.15cm2 AI P 1/2 Wkfq138.49ms Pulmonic Valve V20.79m/s Tricuspid Valve TR Velocity2.24m/s [id number] Conclusion MODERATELY DILATED LV GLOBAL LV HYPOKINESIS LV EF IS 35% AND IS MODERATELY DECREASED MODERATE DEGREE MR MODERATELY SEVERE AORTIC REGURGITATION NO EFFUSION
--- NOTE | 2025-04-16 08:24 | ECG ---
[facility] Test Date: 2025-04-13 Test Time: 09:45:14 Pat Name: SALEEM VERONICA Department: Respiratoy Room: 0289T B Gender: F [employer] Agent: [id number] : 1955 Requested By: PARTHA OTERO Order Number: [id number] Reading MD: Elías Hubbard Measurements Intervals [place] Rate: 64 P: 43 SC: 216 QRS: -27 QRSD: 170 T: 104 QT: 473 QTc: 488 Interpretive Statements Sinus rhythm Borderline prolonged SC interval Left atrial enlargement Right bundle branch block LVH with secondary repolarization abnormality Electronically Signed On 04-16-2025 10:13:22 PDT by Elías Hubbard Please click the below link to view image of tracing.
== END 2025-04-14 18:20 | disposition home or self-care (01) | DRG 640 ==
LOC: ER 16:18 → OVERFLOW 23:18 → TELE-WESTW 04-13 02:47
PROVIDERS: ADMIT Student in an Organized Health Care Education/Training Program; ATTEND Student in an Organized Health Care Education/Training Program
DX: E87.5 Hyperkalemia (principal); I21.A1 Myocardial infarction type 2; I42.9 Cardiomyopathy, unspecified; N17.9 Acute kidney failure, unspecified; I13.0 Hypertensive heart and chronic kidney disease with heart failure and stage 1 through stage 4 chronic kidney disease, or unspecified chronic kidney disease; N18.32 Chronic kidney disease, stage 3b; E78.5 Hyperlipidemia, unspecified; E66.9 Obesity, unspecified; E11.65 Type 2 diabetes mellitus with hyperglycemia; E11.22 Type 2 diabetes mellitus with diabetic chronic kidney disease; R80.9 Proteinuria, unspecified; I50.9 Heart failure, unspecified; I45.10 Unspecified right bundle-branch block; T50.2X5A Adverse effect of carbonic-anhydrase inhibitors, benzothiadiazides and other diuretics, initial encounter; Z90.49 Acquired absence of other specified parts of digestive tract; Z85.3 Personal history of malignant neoplasm of breast; Z92.21 Personal history of antineoplastic chemotherapy; Z92.3 Personal history of irradiation; Z87.891 Personal history of nicotine dependence; Z68.29 Body mass index [BMI] 29.0-29.9, adult; Z79.899 Other long term (current) drug therapy; Z79.4 Long term (current) use of insulin; Z87.898 Personal history of other specified conditions; Y92.89 Other specified places as the place of occurrence of the external cause
CPT/HCPCS: 36415; 76775; 80048; 80053; 80061; 81001; 82570; 82962; 83036; 83735; 84156; 84443; 84484; 85025; 93005; 93306; 96372; 96374; G0378; J1815